=== PATIENT | female | born 1955 | race Caucasian/White ===

== ENCOUNTER 2016-08-09 17:14 | Emergency (ER) | payer OTHER ==
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
[2016-08-09 17:31] VITALS: RESP 18; TEMP 97.7; O2SAT 95
[2016-08-09] MEDS ORDERED: LORazepam 1 MG TAB PO ONE (18:28)
[2016-08-09] MEDS ORDERED: LORazepam 2 MG/ML INJ ONE (18:38)
[2016-08-09] MEDS ORDERED: LORazepam 2 MG/ML INJ IM ONE (18:44)
[2016-08-09 19:08] VITALS: BP 169/101; PULSE 101
== END 2016-08-09 19:09 | disposition home or self-care (01) ==
DX: F31.9 Bipolar disorder, unspecified (principal); Z79.82 Long term (current) use of aspirin; Z85.3 Personal history of malignant neoplasm of breast

== ENCOUNTER 2016-08-09 21:51 | Emergency (ER) | payer OTHER ==
[2016-08-09 22:16] VITALS: BP 142/92; RESP 18; TEMP 97.5
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
[2016-08-10] MEDS ORDERED: ACETAMINOPHEN 500 MG TAB ONE (04:23)
[2016-08-10] MEDS ORDERED: IBUPROFEN SUSP 100 MG/5 ML UDCUP PO ONE (04:25)
[2016-08-10] MEDS ORDERED: IBUPROFEN 600 MG TAB PO ONE (04:27)
[2016-08-10 05:00] VITALS: PULSE 99; O2SAT 93
== END 2016-08-10 07:10 | disposition home or self-care (01) ==
LOC: EDUNIT#
DX: F31.9 Bipolar disorder, unspecified (principal); Z79.82 Long term (current) use of aspirin

== ENCOUNTER 2016-08-20 11:33 | Inpatient (IN) | payer OTHER, MEDICAID ==
--- NOTE | 2016-08-20 12:39 | EDPHY ---
H & P Stated Complaint: pt discharged from [facility]. refused to transfer. Source: Other Exam Limitations: Clinical condition - Personal History Current Tetanus/Diphtheria Vaccine: Yes Current Tetanus Diphtheria and Acellular Pertussis (TDAP): Yes - Medical/Surgical History Hx Asthma: No Hx Chronic Respiratory Disease: Yes Hx Diabetes: No Hx Cardiac Disease: No Hx Renal Disease: Yes Hx Cirrhosis: No Hx Alcoholism: No Hx HIV/AIDS: No Hx Splenectomy or Spleen Trauma: No Other PMH: States [facility], COPD, Ca Breast, Neoplasm of kidney, anxiety disorder, aplastic anemia, CHF, PNA, hypothyroidism, UTI- from [facility]. Refusing to give any information. - Social History Smoking Status: Light smoker Time Seen by Provider: 08/20/16 11:41 HPI/ROS: CHIEF COMPLAINT: "There is nothing wrong with me" HISTORY OF PRESENT ILLNESS: This is a 60-year-old female with a history of bipolar disorder. She tells me that she was evicted from [facility] this morning. She would like to go to [place] where she reportedly owns a private home. I am that she was to go to [facility] in [place] today, apparently for an evaluation of some sort. However, she refused to get into the transportation that had been arranged. I have spoken with Dr. Chin, physician at [facility], and our briefcase sewer, who has also spoken with staff at [facility] to obtain additional history. Apparently she was placed on an M1 hold last week and was evaluated [facility]. She was discharged from [facility] after the evaluation and returned to [facility]. It seems that her behavior has been un manageable. She has been aggressive with the staff and other patients. She persists in smoking in the presence of oxygen. The patient has no complaints whatsoever at this time. She denies chest pain. She does not feel short of breath. She states that she wears oxygen on an as needed basis, usually at night. She has a bag of medications with her and tells me that she does not plan to continue taking most of these these medications. She has a guardian. The patient herself does not have decision making capacity. REVIEW OF SYSTEMS: Patient cannot reliably provide a review of systems. (Marla Basilio) - Social History Additional Social History: Has been living at [facility]. She has a guardian. Continues to smoke cigarettes. Denies alcohol use. (Marla Basilio) - Physical Exam Exam: General Appearance: Alert. Vital signs reviewed. She is wearing oxygen. Initial BP 139.99. Disheveled. Eyes: Pupils equal and round, no conjunctival injection, no discharge. Anicteric. ENT, Mouth: Mucous membranes are moist, no oropharyngeal erythema or edema. Neck: No lymphadenopathy, supple. Respiratory: Lungs are clear to auscultation; no wheezes, rales, or rhonchi. Cardiovascular: Regular rate and rhythm; no murmur, rub, or gallop. Gastrointestinal: Abdomen is soft and nontender, no masses or organomegaly, bowel sounds normal. Skin: Warm and dry, no rashes on exposed skin, normal color. Back: Nontender to palpation over the thoracolumbar spine. No CVAT. Neurological: Alert and oriented. Moving all four extremities easily and equally. PERRL. EOMI. Facial expressions symmetric. Tongue midline. Psychiatric: Normal affect, slightly pressured speech. (Marla Basilio) Constitutional: Initial Vital Signs Temperature (C) 36.5 C 08/20/16 11:33 Heart Rate 98 08/20/16 11:33 Respiratory Rate 16 08/20/16 11:33 Blood Pressure 139/99 H 08/20/16 11:33 O2 Sat (%) 98 08/20/16 11:33 O2 Delivery Mode Nasal Cannula O2 (L/minute) 3 Allergies/Adverse Reactions: formoterol fumarate [From Dulera] Allergy (Unknown, Verified 08/09/16 17:33) Influenza Virus Vaccines Allergy (Unknown, Verified 08/09/16 17:33) mometasone furoate Allergy (Unknown, Verified 08/09/16 17:33) prednisolone Allergy (Unknown, Verified 08/09/16 17:33) risperidone [From Risperdal] Allergy (Unknown, Verified 08/09/16 17:33) acetaminophen Allergy (Verified 08/09/16 17:33) Home Medications: Medication Instructions Recorded Albuterol [Proventil Inhaler HFA 2 puffs IH Q4 PRN 08/09/16 (*)] Aspirin [Aspirin 81mg (*)] 81 mg PO DAILY 08/09/16 Carisoprodol [Soma (*)] 350 mg PO Q8 PRN 08/09/16 Carvedilol [Coreg] 12.5 mg PO BIDMEAL 08/09/16 Cephalexin [Keflex (*)] 500 mg PO BID 08/09/16 Ergocalciferol [Vitamin D2 (*)] 50,000 unit PO Q30D 08/09/16 Folic Acid [Folic Acid 1 MG (*)] 1 mg PO DAILY 08/09/16 Furosemide [Lasix 20 MG (*)] 20 mg PO DAILY 08/09/16 Guaifenesin [Tussin Mucus-Chest 600 mg PO BID 08/09/16 Congestion] HYDROmorphone HCL [Dilaudid 2 mg 2 mg PO Q6 PRN MDD UP TO 3X/DAY 08/09/16 (*)] Hydrocodone/Chlorpheniramine 5 ml PO Q12 PRN 08/09/16 [Vituz Solution] Letrozole [Femara 2.5 mg (*)] 2.5 mg PO DAILY 08/09/16 Levothyroxine [Synthroid 75 mcg 75 mcg PO DAILY06 08/09/16 (*)] Loperamide HCl [Imodium 2 mg (*)] 2 mg PO Q6 PRN 08/09/16 Omeprazole [Prilosec 20 mg] 20 mg PO DAILY 08/09/16 Phenytoin [Dilantin (*)] 200 mg PO DAILY 08/09/16 Polyethylene Glycol 3350 [Miralax 17 gm PO DAILY PRN 08/09/16 17 gm (*)] Potassium Cl [Klor-Con 20 meq (*)] 20 meq PO DAILY 08/09/16 Sennosides 17.6 mg PO DAILY PRN 08/09/16 Simethicone [GAS-X] 80 mg PO Q8 PRN 08/09/16 Sodium Cl Nasal [[place] (*)] 2 spray [place]ACH[place]ARE Q8 PRN 08/09/16 clonazePAM [Klonopin (*)] 0.25 mg PO BID 08/09/16 morphINE SR [Ms Contin/Oramorph 15 15 mg PO BID 08/09/16 mg (*)] Aripiprazole [Abilify] 15 mg PO DAILY 08/22/16 HYDROmorphone HCL [Dilaudid 2 mg 1 mg PO HS PRN 08/22/16 (*)] Nystatin Cream 1 angella TP BID 08/22/16 Phenytoin [Dilantin (*)] 300 mg PO HS 08/22/16 Sodium Cl Nasal Gel [[place] Saline 1 angella EACHNARE Q8 PRN 08/22/16 Nasal Gel] Tiotropium Inhaler [Spiriva 18 mcg IH DAILY 08/22/16 Handihaler] Venlafaxine Xr [Effexor Xr 37.5MG 37.5 mg PO DAILY 08/22/16 (*)] Venlafaxine Xr [Effexor Xr] 150 mg PO DAILY 08/22/16 morphINE SR [Ms Contin/Oramorph 15 30 mg PO DAILY16 08/22/16 mg (*)] traZODone [traZODONE 50MG (*)] 50 mg PO HS 08/22/16 Medical Decision Making ED Course/Re-evaluation: 0700: No acute events overnight. Patient pending psychiatric placement. Patient signed over to Dr. Charles at 7am Shift Change. (Casper Shaw) Patient has been evaluated. At 2:00 p.m. our mental health human factors advisor lead tells me that Dr. Henning of Psychiatry will see the patient in the emergency department this afternoon Dr. Jaramillo at 3:15 p.m. (Patrice Charles) 1515: Care of this patient was transferred to me by Dr. Patrice Charles at change of shift. (Rodo Jaramillo) 1600 care assumed by me from Dr. Basilio pending placement. 2300 the care transferred to Dr. Shaw pending placement. No issues during my care of this patient. 2210, 08/21/16 Care re-assumed by me from Dr. Jaramillo. Still awaiting placement. 0700 08/22/[address] Hope pending placement. I have had no issues with this patient overnight. (Noah Khan) 7:30 a.m. on my evaluation the patient is sleeping in her walker chair. She refuses to go to the [facility]. She is somewhat cooperative with questioning and has stable vital signs. We are awaiting psychiatric placement. 2:00 p.m. the patient has been accepted by Dr. Henning to [address] [place] [address]. Transfer paperwork completed. (Rozeski,Keith E) After speaking with the patient's doctor and hearing from our briefcase sewer about her conversations with the [facility] staff, it is clear that [facility] is unable to care for this patient, where she has been residing for the past month. Apparently she has been refusing to take her psychiatric medications. I am trying to obtain her records from her mental health evaluation at [facility] last week. I feel that this patient is gravely disabled and is unable to make decisions for herself. She has a court appointed guardian and is unable to make her own decisions. She is being placed on an M1 hold. Bloodwork, UA, UDS being obtained. Psychiatric evaluation will be performed. Care will be transferred to Dr. Adam Isaac at 4:30 p.m.. (Marla Basilio) Differential Diagnosis: I considered a differential diagnosis including but not limited to bipolar disease off medications, hypoglycemia, infectious process, electrolyte abnormality, head injury and intoxicants. (Marla Basilio) - Data Points Laboratory Results: Laboratory Results 08/20/16 16:49 08/20/16 16:00 Medications Given: Discontinued Medications Aripiprazole (Abilify) 15 mg PO DAILY ELKE Stop: 02/18/17 09:59 Last Admin: 08/22/16 11:34 Dose: 15 mg Aspirin (Aspirin) 81 mg PO EDNOW ONE Stop: 08/22/16 10:00 Last Admin: 08/22/16 11:34 Dose: Not Given Carvedilol (Coreg) 12.5 mg PO EDNOW ONE Stop: 08/22/16 09:59 Last Admin: 08/22/16 11:34 Dose: 12.5 mg Clonazepam (Klonopin) 0.25 mg PO EDNOW ONE Stop: 08/22/16 09:58 Last Admin: 08/22/16 11:34 Dose: Not Given Clonazepam (Klonopin) 0.5 mg PO ONCE ONE Stop: 08/22/16 20:31 Last Admin: 08/22/16 21:28 Dose: 0.5 mg Folic Acid (Folic Acid) 1 mg PO EDNOW ONE Stop: 08/22/16 09:58 Last Admin: 08/22/16 11:34 Dose: 1 mg Furosemide (Lasix) 20 mg PO EDNOW ONE Stop: 08/22/16 09:55 Last Admin: 08/22/16 11:35 Dose: Not Given Levothyroxine Sodium (Synthroid) 75 mcg PO DAILY AT 6AM ELKE Stop: 02/18/17 09:59 Last Admin: 08/22/16 11:35 Dose: 75 mcg Nicotine (Nicoderm Cq) 21 mg TD EDNOW ONE Stop: 08/20/16 16:10 Last Admin: 08/20/16 20:19 Dose: 21 mg Nicotine (Nicoderm Cq) 21 mg TD EDNOW ONE Stop: 08/22/16 11:38 Last Admin: 08/22/16 12:32 Dose: 21 mg Phenytoin (Dilantin) 200 mg PO EDNOW ONE Stop: 08/22/16 10:04 Last Admin: 08/22/16 11:35 Dose: 200 mg Phenytoin Sodium (Dilantin) 300 mg PO HS [facility] Stop: 02/18/17 20:59 Last Admin: 08/22/16 19:48 Dose: Not Given Venlafaxine HCl (Effexor Xr) 150 mg PO DAILY [facility] Stop: 02/18/17 09:59 Last Admin: 08/22/16 11:36 Dose: Not Given Departure - Departure Disposition: [facility] IP Clinical Impression: Bipolar disorder Qualifiers: Active/Remission status: currently active Current bipolar episode type: mixed Current episode severity: mild Qualified Code(s): F31.61 - Bipolar disorder, current episode mixed, mild Condition: Fair
[2016-08-20] MEDS ORDERED: NICOTINE 21 MG/24 HR PATCH TD ONE (16:09)
[2016-08-20 16:12] LABS: ADD DIFF? NO; ADD MORPH? NO; ADD SCAN? NO
[2016-08-20 16:40] LABS: ANION GAP 14 mEq/L (8-16); CARBON DIOXIDE 23 mEq/l (22-31); CHLORIDE 104 mEq/L (97-110); CREATININE 0.6 mg/dL (0.6-1.0); ETHANOL SERUM < 10 mg/dL (0-10); GLOMERULAR FILTRATION RATE > 60; GLUCOSE 126 mg/dL (70-100); POTASSIUM 3.7 mEq/L (3.5-5.2); SODIUM 141 mEq/L (134-144)
[2016-08-20 17:04] LABS: % IMMATURE GRANULYOCYTES 0.5 % (0.0-1.1); ABSOLUTE IMMATURE GRANULOCYTES 0.05 10^3/uL (0.00-0.10); ADD DIFF? NO; ADD MORPH? NO; ADD SCAN? NO; ATYPICAL LYMPHOCYTE FLAG 0 (0-99); FRAGMENT RBC FLAG 0 (0-99); HEMATOCRIT 40.7 % (38.0-47.0); LEFT SHIFT FLG 0 (0-99); LIPEMIA HEMOLYSIS FLAG 90 (0-99); MEAN CELL HEMOGLOBIN 32.5 pg (27.9-34.1); MEAN CELL HEMOGLOBIN CONCENTR. 34.4 g/dL (32.4-36.7); MEAN CELL VOLUME 94.4 fL (81.5-99.8); MEAN PLATELET VOLUME 8.8 fL (8.7-11.7); PLATELET CLUMPS FLAG 0 (0-99); PLATELET COUNT 465 10^3/uL (150-400); RED BLOOD CELL COUNT 4.31 10^6/uL (4.18-5.33); RED CELL DISTRIBUTION WIDTH 13.9 % (11.5-15.2)
[2016-08-21] MEDS ORDERED: OLANZapine 10 MG/2 ML VIAL IM PRN (18:43)
--- NOTE | 2016-08-21 19:00 | GCON ---
[f rep st] CONSULTATION ADDENDUM CORRECTION: Zyprexa IM order is changed to 2.5 mg IM if p.o. Seroquel refused. Please discontinue the initial order of Zyprexa 5 mg IM if Seroquel refused. /[id number]/MODL MTDD
--- NOTE | 2016-08-21 19:30 | BCON ---
[f rep st] CONSULTATION Corrected report ADDENDUM TO PREVIOUSLY DICTATED REPORT CORRECTION OF PREVIOUS DICTATION: Zyprexa IM order is changed to 2.5 mg IM if p.o. Seroquel is refused. Please discontinue the initial order of Zyprexa 5 mg IM if Seroquel is refused. /[id number] [facility] ORIGINAL REPORT PSYCHIATRIC CONSULTATION PATIENT IDENTIFICATION: The patient presents as a 60-year-old white female who was readmitted to the emergency room for the third time this month on 08/20/2016; patient had been evicted from the [facility] on the day of admission to the emergency room, had refused transportation to a residential facility in [place]. The [place] police were called, filled out a ticket for trespassing, and then brought the patient to the emergency room instead of long term, which was thought to be an inappropriate disposition. CONSULTATIVE REQUEST: I was asked to see this patient for assessment of medication management to stabilize the patient for a planned referral to an acute inpatient psychiatry service. HISTORY TO DATE: The patient has a known chronic psychiatric history extending back over 20 plus years. She has been diagnosed in the past as suffering from a Delusional Disorder, Bipolar Disorder, Schizoaffective Disorder. She also has a significant and chronic history for alcohol abuse. She suffered a medication overdose in May 2014, which precipitated a period of an acute comatose state. Following medical recovery from this event, the patient was found to have impaired judgment, and was declared incompetent by a court hearing. 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 Guardian's name is Hyun Dodson. Over the past 2 years, the patient has had a variable course, was apparently stabilized on unknown medications, such that she was able to live stably in an [facility] for approximately 1 year. Over the past year, she has sustained regressive behaviors associated with impulsivity, demandingness, at times aggressive physical dyscontrol. She also has demonstrated episodes of psychotic vulnerability, with paranoid thinking and delusional thinking. Finally, she has also evidenced affective instability, with primary mood instability and breakthrough acute anxiety symptoms. Interspersed with these regressive elements, have been periods of relative calm and organized thinking. Most recently, she had been placed in the [facility] less than 30 days ago. She has apparently sustained unstable behaviors, uncooperativeness, and, at times, has acted up aggressively toward staff and patients. It is unclear her level of compliance with medications during her time at [facility]. It is also unclear precisely of what psychiatric medications had been applied. We do know that the patient was declared unmanageable by [facility] on the day of her admission to the emergency room, 08/20. We do know she has been in the emergency room on two previous occasions in August, self-referred , and transported by patient calling the ambulance for herself. She was medically cleared and sent back to resume living at [facility] the first 2 ED discharges. Since her admission this time to the emergency room, she has presented as irritable, medication resistant, but in relative behavioral control , with no incidence of progressive acting up. Again she has been found to have no active medical instability She will not return to [facility] this time as she has proven to be unmanageable in that setting and has been evicted. Current thinking by the Psychiatry Team is that the patient needs a secure inpt setting to effectively restabilize sufficiently to stepdown to less restrictive residential setting. MENTAL STATUS EXAM: The patient presents as an old-appearing 60-year-old woman sitting in her wheelchair. She is mildly unkempt, but does cooperate and engage with me, makes good eye contact. Her thought process is organized and reality focused, other than occasional statements about her guardian being , and a "water/wastewater engineer" being in the lobby, both at odds with reality. Her mood state is irritable, with mild underlying dysphoria. She appears to understand she will not be returning to [facility]. She also appears to understand I have reviewed her case with her guardian, Hyun, and we are both in agreement that she needs more effective environment to be referred to for further care and stabilization. I do explain the need for her to take medications, and that I can authorize the medications to be given involuntarily under her guardian's authority. She states this is untrue and would be illegal. I reassured her I have reviewed her guardian's authority directly, and have concluded we can do this. We also discussed her choice of medications as being either Seroquel or Zyprexa in low doses. I explained the goals of these medications are to calm her, improve her concentration and attention, so she can think more clearly, and in a cooperative way, as we are working out a disposition for her. She states she would like some time to think for herself about what I am telling her, and I assured her I will give that to her, and make a followup contact, but that the medications will be a necessary element for treatment going forward in the emergency room. DIAGNOSTIC IMPRESSION: 1. Precise psychiatric diagnosis is unclear, but the patient appears likely to be on the spectrum between Bipolar Disorder and Schizoaffective Disorder, as the history is currently understood, integrated with the exam. She is currently presenting with some circumscribed paranoid ideation, but otherwise with intact reality testing. 2. A chronic history of alcohol abuse, which has apparently not been active for several years, as the patient has been living in institutionalized existence. 3. No active medical problems, per current emergency room evaluation; the patient has an extensive medical history for chronic conditions, as referenced in the emergency room note. RECOMMENDATIONS: Medications: Medications--We will order Seroquel at 50 mg p.o. twice daily, and 50 mg p.o. q.4h p.r.n.; if patient refuses p.o. Seroquel dosing, we will administer Zyprexa at 5 mg IM to concur with patient presenting as gravely disabled, and in need of a referral to a secure inpatient psychiatric service. On brief followup contact pt agreed to to Seroquel po dosing regimen.and understood the dispositional plan Thank you for this interesting consultation; I can be reached at [phone] with any questions. See followup correction of Zyprexa dosing as decreased to 2 1/2 mg IM if po Seroquel dosing refused /[id number]/MODL [facility], 08/22/16, jose CHÁVEZ
[2016-08-21] MEDS: QUEtiapine FUMARATE 50 MG TAB PO PRN (19:48)
[2016-08-21] MEDS: QUEtiapine FUMARATE 50 MG TAB PO SCH (20:18)
[2016-08-22 02:20] LABS: COLOR AMBER; LEUKOCYTE ESTERASE,URINE NEGATIVE (NEGATIVE); NITRITE,URINE NEGATIVE (NEGATIVE)
[2016-08-22] MEDS ORDERED: FUROSEMIDE 20 MG TAB PO ONE (09:54)
[2016-08-22] MEDS ORDERED: FOLIC ACID 1 MG TAB PO ONE (09:57)
[2016-08-22] MEDS ORDERED: clonazePAM 0.5 MG TAB PO ONE ×2 (09:57→20:30)
[2016-08-22] MEDS ORDERED: CARVEDILOL 6.25 MG TAB PO ONE (09:58)
[2016-08-22] MEDS ORDERED: ASPIRIN 81 MG CHEWABLE TAB PO ONE (09:59)
[2016-08-22] MEDS ORDERED: LEVOTHYROXINE 75 MCG TAB PO SCH (10:00)
[2016-08-22] MEDS ORDERED: ARIPiprazole 10 MG TAB PO SCH (10:00)
[2016-08-22] MEDS ORDERED: VENLAFAXINE XR 150 MG CAP PO SCH (10:00)
[2016-08-22] MEDS ORDERED: PHENYTOIN 100 MG/4 ML UDL PO ONE (10:03)
[2016-08-22] MEDS ORDERED: FUROSEMIDE 20 MG TAB ONE (11:02)
[2016-08-22] MEDS ORDERED: QUEtiapine FUMARATE 100 MG TAB ONE (11:18)
[2016-08-22] MEDS: POTASSIUM CL 20 MEQ TAB PO SCH (11:35)
[2016-08-22] MEDS: LETROZOLE 2.5 MG TAB PO SCH (11:35)
[2016-08-22] MEDS: QUEtiapine FUMARATE 50 MG TAB PO SCH ×2 (11:36→19:36)
[2016-08-22] MEDS: TIOTROPIUM INHALER 18 MCG/DOSE 5 DOSE/MDI IH SCH ×2 (11:36→12:00)
[2016-08-22] MEDS ORDERED: NICOTINE 21 MG/24 HR PATCH TD ONE (11:37)
[2016-08-22] MEDS ORDERED: NON-FORMULARY NEW DRUG (Carvedilol [Coreg] 12.5 MG) PO SCH (18:00)
[2016-08-22] MEDS: CARVEDILOL 6.25 MG TAB PO SCH ×2 (19:31→19:36)
[2016-08-22] MEDS: guaiFENesin 200 MG/10 ML UDCUP PO SCH (19:36)
[2016-08-22] MEDS ORDERED: PHENYTOIN SODIUM EXTENDED 100 MG CAP PO SCH (21:00)
[2016-08-22] MEDS ORDERED: NYSTATIN TP SCH ×2 (21:00)
[2016-08-22] MEDS: PHENYTOIN 50 MG CHEWABLE TAB PO SCH (21:28)
[2016-08-22] MEDS: NYSTATIN 15 GM CR TUBE TP SCH (21:28)
[2016-08-23] MEDS ORDERED: NON-FORMULARY NEW DRUG (Omeprazole [Prilosec 20 Mg] 20 MG) PO SCH (09:00)
[2016-08-23] MEDS ORDERED: PHENYTOIN SODIUM EXTENDED 100 MG CAP PO SCH (09:00)
[2016-08-23] MEDS: LETROZOLE 2.5 MG TAB PO SCH (10:30)
[2016-08-23] MEDS: QUEtiapine FUMARATE 50 MG TAB PO SCH ×2 (10:31→20:14)
[2016-08-23] MEDS: CARVEDILOL 6.25 MG TAB PO SCH ×2 (10:32→17:46)
[2016-08-23] MEDS: LEVOTHYROXINE 75 MCG TAB PO SCH (10:32)
[2016-08-23] MEDS: POTASSIUM CL 20 MEQ TAB PO SCH ×3 (10:33→12:19)
[2016-08-23] MEDS: FOLIC ACID 1 MG TAB PO SCH (10:33)
[2016-08-23] MEDS: PANTOPRAZOLE SODIUM 40 MG TAB PO SCH ×2 (10:33→10:41)
[2016-08-23] MEDS: guaiFENesin 200 MG/10 ML UDCUP PO SCH ×3 (10:33→20:14)
[2016-08-23] MEDS: NYSTATIN 15 GM CR TUBE TP SCH ×2 (10:41→20:14)
[2016-08-23] MEDS: PHENYTOIN 50 MG CHEWABLE TAB PO SCH ×4 (12:11→20:14)
[2016-08-23] MEDS: TIOTROPIUM INHALER 18 MCG/DOSE 5 DOSE/MDI IH SCH (12:19)
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
[2016-08-23] MEDS: HYDROmorphONE/DILAUDID 2 MG TAB PO PRN ×2 (16:54→20:51)
[2016-08-23] MEDS: CARISOPRODOL 350 MG TAB PO PRN (16:54)
[2016-08-23] MEDS: clonazePAM 0.5 MG TAB PO SCH (20:14)
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
[2016-08-24] MEDS: POTASSIUM CL 20 MEQ TAB PO SCH (08:42)
[2016-08-24] MEDS: PHENYTOIN 50 MG CHEWABLE TAB PO SCH ×4 (08:43→18:37)
[2016-08-24] MEDS: LETROZOLE 2.5 MG TAB PO SCH ×2 (08:44→09:13)
[2016-08-24] MEDS: CARVEDILOL 6.25 MG TAB PO SCH ×2 (08:44→18:35)
[2016-08-24] MEDS: FOLIC ACID 1 MG TAB PO SCH ×2 (08:44→09:12)
[2016-08-24] MEDS: guaiFENesin 200 MG/10 ML UDCUP PO SCH ×2 (08:44→22:00)
[2016-08-24] MEDS: QUEtiapine FUMARATE 50 MG TAB PO SCH ×3 (08:44→18:37)
[2016-08-24] MEDS: PANTOPRAZOLE SODIUM 40 MG TAB PO SCH (08:45)
[2016-08-24] MEDS: TIOTROPIUM INHALER 18 MCG/DOSE 5 DOSE/MDI IH SCH (08:45)
[2016-08-24] MEDS: NYSTATIN 15 GM CR TUBE TP SCH ×2 (08:52→22:00)
[2016-08-24] MEDS: CARISOPRODOL 350 MG TAB PO PRN ×2 (09:29→18:55)
[2016-08-24] MEDS: LEVOTHYROXINE 75 MCG TAB PO SCH (10:38)
[2016-08-24] MEDS: QUEtiapine FUMARATE 50 MG TAB PO PRN (13:36)
[2016-08-24] MEDS ORDERED: OLANZapine 10 MG/2 ML VIAL IM PRN (13:42)
--- NOTE | 2016-08-24 15:09 | SOAPPROG ---
SOAP Progress Note Assessment/Plan: Assessment: Plan: 08/24/16 14:55 DAY 3 UPDATE: Pt presents as demanding, entitle, using abusive language in contacts with Nursing staff; her compliance with meds has been mixed but she is taking the more important standing medical medications and is complying with the standing Seroquel. She has not acted up in any aggressive physical manner. She has also not been abusive or aggressive toward other patients. Admission medical consultation with Dr Burrows did not identify any active medical problems. ON EXAM: prior to my exam I reviewed the operational Care Plan with our Head Nurse and her assigned RN which called for active limits placed on pt's foul language and entitled demandingness with emphasis on consistency across shifts. I reviewed the problems and the need for corrective response by the patient in the course of the session. After demanding immediate DC and transfer to another hospital the pt calmed and agreed to cooperate with civilizing her language and complying effectively prescribed meds. She also accepted the absolute restriction on smoking while in the hospital and requesting NRT which I will order for her. Thoughout the session she remained in good control and did not use abusive language. She did not display any psychosis in the session and was cognitivley intact with minimal impairment ASSESSMENT/PLAN: regression c/w [place] 2 Cluster B pathology; today nonpsychotic and in behavioral control/ no change in meds o/t changing the Zyprexa order to an E-med order; behavioral care plan in place as referenced; w/u in process to reach definitive dx's and fro mulated DC planning; Nicoderm patch ordered Objective: Vital Signs Temp Pulse Resp BP Pulse Ox 36.6 C 86 15 107/53 L 96 08/24/16 00:27 08/24/16 00:27 08/24/16 00:27 08/24/16 00:27 08/24/16 00:27 ICD10 Worksheet Patient Problems: Problems Problem Status Onset Bipolar disorder Acute
[2016-08-24] MEDS: NICOTINE 21 MG/24 HR PATCH TD SCH (16:01)
[2016-08-24] MEDS: clonazePAM 0.5 MG TAB PO SCH (18:36)
[2016-08-24] MEDS: HYDROmorphONE/DILAUDID 2 MG TAB PO PRN ×2 (18:58→19:51)
[2016-08-25] MEDS: CARVEDILOL 6.25 MG TAB PO SCH ×2 (09:35→18:29)
[2016-08-25] MEDS: FOLIC ACID 1 MG TAB PO SCH (09:40)
[2016-08-25] MEDS: QUEtiapine FUMARATE 50 MG TAB PO SCH ×2 (09:41→18:30)
[2016-08-25] MEDS: PANTOPRAZOLE SODIUM 40 MG TAB PO SCH ×2 (09:41→12:13)
[2016-08-25] MEDS: LEVOTHYROXINE 75 MCG TAB PO SCH (09:41)
[2016-08-25] MEDS: PHENYTOIN 50 MG CHEWABLE TAB PO SCH ×2 (09:42→18:30)
[2016-08-25] MEDS: LETROZOLE 2.5 MG TAB PO SCH (09:42)
[2016-08-25] MEDS: NICOTINE 21 MG/24 HR PATCH TD SCH (09:43)
[2016-08-25] MEDS: guaiFENesin 200 MG/10 ML UDCUP PO SCH ×2 (09:44→18:30)
[2016-08-25] MEDS: POTASSIUM CL 20 MEQ TAB PO SCH (09:45)
[2016-08-25] MEDS: NYSTATIN 15 GM CR TUBE TP SCH ×2 (09:47→19:38)
[2016-08-25] MEDS: HYDROmorphONE/DILAUDID 2 MG TAB PO PRN ×2 (09:50→16:01)
[2016-08-25] MEDS: CARISOPRODOL 350 MG TAB PO PRN ×2 (09:50→18:26)
[2016-08-25] MEDS: TIOTROPIUM INHALER 18 MCG/DOSE 5 DOSE/MDI IH SCH (12:15)
--- NOTE | 2016-08-25 16:35 | SOAPPROG ---
SOAP Progress Note Assessment/Plan: Assessment:Patient with mood disorder with psychosis along with unspecified opioid use disorder currently taking medications. She is not making any demands at this time. No evidence of a mood disorder at this time. Her statement about going to [place] most likely is delusional. No current safety issues. Plan: Continue medications and treatment. Encourage continued pro-social behaviors. 08/25/16 16:32 08/25/16 16:38 Subjective: "Come si down and speak with me." She reports she has no problems except she would like clean clothes, her rosary, yellow necklace, and the tangle in the back of her hair combed out. She reports she will be going to her late 's home in [place]. She states he is a retired hospital nurse, [employer]. He allegedly know she is coming. Objective: Vital Signs Temp Pulse Resp BP Pulse Ox 36.6 C 78 12 144/73 H 97 08/25/16 09:56 08/25/16 09:56 08/25/16 09:56 08/25/16 00:30 08/25/16 09:56 female witting on her bed with O2 via NC, hunched over. Fair eye contact. Mood- Fine." Affect- Euthymic. Thought Process- Goal directed. Thought Content - No SI/HI. No AH/VH. +delusional. - Time Spent With Patient Time Spent With Patient: 25 minutes - Pending Discharge Pending Discharge Within 24 Hours: No Pending Discharge Within 48 Hours: No ICD10 Worksheet Patient Problems: Problems Problem Status Onset Bipolar disorder Acute
[2016-08-25] MEDS: clonazePAM 0.5 MG TAB PO SCH (18:30)
[2016-08-26] MEDS: HYDROmorphONE/DILAUDID 2 MG TAB PO PRN ×3 (03:53→17:52)
[2016-08-26] MEDS: QUEtiapine FUMARATE 50 MG TAB PO PRN (03:53)
[2016-08-26] MEDS: CARISOPRODOL 350 MG TAB PO PRN ×3 (03:54→21:17)
[2016-08-26] MEDS: NICOTINE 21 MG/24 HR PATCH TD SCH (08:07)
[2016-08-26] MEDS: guaiFENesin 200 MG/10 ML UDCUP PO SCH ×2 (08:07→21:26)
[2016-08-26] MEDS: FOLIC ACID 1 MG TAB PO SCH (08:08)
[2016-08-26] MEDS: CARVEDILOL 6.25 MG TAB PO SCH ×2 (08:08→17:47)
[2016-08-26] MEDS: LETROZOLE 2.5 MG TAB PO SCH (08:08)
[2016-08-26] MEDS: PANTOPRAZOLE SODIUM 40 MG TAB PO SCH (08:08)
[2016-08-26] MEDS: PHENYTOIN 50 MG CHEWABLE TAB PO SCH ×2 (08:08→21:15)
[2016-08-26] MEDS: QUEtiapine FUMARATE 50 MG TAB PO SCH (08:32)
[2016-08-26] MEDS: LEVOTHYROXINE 75 MCG TAB PO SCH (08:34)
[2016-08-26] MEDS: NYSTATIN 15 GM CR TUBE TP SCH ×2 (08:43→21:26)
[2016-08-26] MEDS: POTASSIUM CL 20 MEQ TAB PO SCH (08:44)
[2016-08-26] MEDS: TIOTROPIUM INHALER 18 MCG/DOSE 5 DOSE/MDI IH SCH (08:45)
--- NOTE | 2016-08-26 13:48 | SOAPPROG ---
SOAP Progress Note Assessment/Plan: Assessment:Patient with mood disorder with psychosis along with unspecified opioid use disorder currently taking medications. She is asking to leave today. She believes family members are coming tot get her. No evidence of a mood disorder at this time. Her statement about going to [place] or [place] most likely is delusional. She was told we will discuss her plans further once her family or guardian arrives. She is asking to have her hair untangled and something for sleep. No current safety issues. Plan: Continue medications and treatment. Will increase Seroquel for her psychosis, mood, and sleep. It is potentially being decreased by the [place], so we will need to monitor her response. Encourage continued pro-social behaviors. Will not restart Trazodone given she is on Seroquel. 08/25/16 16:32 08/25/16 16:38 08/26/16 13:36 08/26/16 13:48 08/26/16 13:57 Subjective: She states he won't keep this underwriter solicitation director long, but she has three things to talk to this underwriter solicitation director about. #1- "I understand tht you discharged me already." She reports one of the workers told her this several days ago. She reports she is speaking logically and she is not suicidal, so she does not believe I have grounds to keep her. She reports she needs to be discharged to [place] or [place]. She believes her printing screen assembler will be coming to get her today. "My people will be here this morning." #2- She report she is doing well on medications except she needs a little more pain medication She reports he was on MS Contin and other opiates along with Soma and Dilaudid in the past. She will leave it up to this underwriter solicitation director to decide what is appropriate. #3- She reports having [place] blood. "I need your help to get the tangle out. I need hair oil and a different comb. You know the kind of comb you use." Objective: Vital Signs Temp Pulse Resp BP Pulse Ox 36.3 C 83 16 115/70 92 08/26/16 00:30 08/26/16 00:30 08/26/16 00:30 08/26/16 00:30 08/26/16 00:30 female sitting in a chair in her room with O2 via NC. Hair matted in the back. Speech- RRR and tone. Mood- "Hopeful. " Affect- Euthymic. Thought Process- linear and goal directed. Thought Content - No SI/HI. No AH/VH. + delusional. - Time Spent With Patient Time Spent With Patient: 15 - Pending Discharge Pending Discharge Within 24 Hours: No Pending Discharge Within 48 Hours: No ICD10 Worksheet Patient Problems: Problems Problem Status Onset Bipolar disorder Acute
[2016-08-26] MEDS: QUEtiapine FUMARATE 200 MG TAB PO SCH (21:16)
[2016-08-26] MEDS: clonazePAM 0.5 MG TAB PO SCH (21:26)
[2016-08-27] MEDS: HYDROmorphONE/DILAUDID 2 MG TAB PO PRN ×3 (04:17→16:30)
[2016-08-27] MEDS: CARISOPRODOL 350 MG TAB PO PRN ×3 (06:26→22:26)
[2016-08-27] MEDS: NICOTINE 21 MG/24 HR PATCH TD SCH (09:35)
[2016-08-27] MEDS: PHENYTOIN 50 MG CHEWABLE TAB PO SCH ×2 (09:35→21:26)
[2016-08-27] MEDS: QUEtiapine FUMARATE 25 MG TAB PO SCH (09:36)
[2016-08-27] MEDS: CARVEDILOL 6.25 MG TAB PO SCH ×2 (09:36→18:02)
[2016-08-27] MEDS: PANTOPRAZOLE SODIUM 40 MG TAB PO SCH (09:37)
[2016-08-27] MEDS: FOLIC ACID 1 MG TAB PO SCH (09:37)
[2016-08-27] MEDS: LEVOTHYROXINE 75 MCG TAB PO SCH (09:37)
[2016-08-27] MEDS: LETROZOLE 2.5 MG TAB PO SCH (09:37)
[2016-08-27] MEDS: TIOTROPIUM INHALER 18 MCG/DOSE 5 DOSE/MDI IH SCH (09:41)
[2016-08-27] MEDS: guaiFENesin 200 MG/10 ML UDCUP PO SCH ×2 (09:43→21:31)
[2016-08-27] MEDS: NYSTATIN 15 GM CR TUBE TP SCH ×2 (09:43→21:31)
[2016-08-27] MEDS: POTASSIUM CL 20 MEQ TAB PO SCH (09:44)
--- NOTE | 2016-08-27 11:37 | SOAPPROG ---
SOAP Progress Note Assessment/Plan: Assessment: Plan: 08/24/16 14:55 DAY 3 UPDATE: Pt presents as demanding, entitle, using abusive language in contacts with Nursing staff; her compliance with meds has been mixed but she is taking the more important standing medical medications and is complying with the standing Seroquel. She has not acted up in any aggressive physical manner. She has also not been abusive or aggressive toward other patients. Admission medical consultation with Dr Burrows did not identify any active medical problems. ON EXAM: prior to my exam I reviewed the operational Care Plan with our Head Nurse and her assigned RN which called for active limits placed on pt's foul language and entitled demandingness with emphasis on consistency across shifts. I reviewed the problems and the need for corrective response by the patient in the course of the session. After demanding immediate DC and transfer to another hospital the pt calmed and agreed to cooperate with civilizing her language and complying effectively prescribed meds. She also accepted the absolute restriction on smoking while in the hospital and requesting NRT which I will order for her. Thoughout the session she remained in good control and did not use abusive language. She did not display any psychosis in the session and was cognitivley intact with minimal impairment ASSESSMENT/PLAN: regression c/w [place] [employer] 2 Cluster B pathology; today nonpsychotic and in behavioral control/ no change in meds o/t changing the Zyprexa order to an E-med order; behavioral care plan in place as referenced; w/u in process to reach definitive dx's and formulated DC planning; Nicoderm patch ordered 08/27/16 11:21 DAY ' UPDATE: Nursing reports pt is improving thru the weekend with diminished foul language, no behavioral dyscontrol and improving meds compliance; remains visible in milieu; sleep is still compromised and hs Seroquel increased to 200 mg hs. ON EXAM: presents as calm, cooperative conversant; pt continues to present odd thought pattern seen pre-weekend in which she appears to confuse her t gonzalo sense and issues a/w DC planning - reporting conversations that haven't taken place or think that persons are nearby or on the unit. These statements are interspersed with lucid statements and full orientation. Suggests cognitive impairment rather that a thought disorder. ASSESSMENT/PLAN: improving course with more cooperative behaviors, lessening verbal abusiveness; CI as referenced/ will add Melatonin 3mg at pt's suggestion ; o/w no meds changes; continue reintegrative Care Plan as d/w Nursing; call pending to guardian to arrange DC planning conference Medications Generic Name Dose Route Start Last Admin Trade Name Freq PRN Reason Stop Dose Admin Clonazepam 0.5 mg 08/23/16 21:00 08/26/16 21:26 Klonopin PO 02/19/17 20:59 Not Given HS ELKE Quetiapine Fumarate 50 mg 08/21/16 18:47 08/24/16 13:36 Seroquel PO 02/17/17 18:46 50 mg Q4H PRN AGITATION Quetiapine Fumarate 200 mg 08/26/16 21:00 08/26/16 21:16 Seroquel PO 02/22/17 20:59 Not Given HS ELKE Quetiapine Fumarate 50 mg 08/27/16 09:00 08/27/16 09:36 Seroquel PO 02/23/17 08:59 Not Given DAILY ELKE Phenytoin 300 mg 08/22/16 21:00 08/26/16 21:15 Dilantin PO 02/18/17 20:59 300 mg HS ELKE Objective: Vital Signs Temp Pulse Resp BP Pulse Ox 36.2 C 86 12 141/69 H 91 L 08/27/16 06:21 08/27/16 06:21 08/27/16 06:21 08/27/16 06:21 08/27/16 06:21 ICD10 Worksheet Patient Problems: Problems Problem Status Onset Bipolar disorder Acute
[2016-08-27] MEDS: QUEtiapine FUMARATE 50 MG TAB PO PRN (16:34)
[2016-08-27] MEDS: clonazePAM 0.5 MG TAB PO SCH (21:24)
[2016-08-27] MEDS: QUEtiapine FUMARATE 200 MG TAB PO SCH (21:25)
[2016-08-27] MEDS: MELATONIN 3 MG TAB PO SCH (21:25)
[2016-08-28] MEDS: QUEtiapine FUMARATE 50 MG TAB PO PRN ×2 (04:31→13:38)
[2016-08-28] MEDS: HYDROmorphONE/DILAUDID 2 MG TAB PO PRN ×3 (04:32→18:39)
[2016-08-28] MEDS: PHENYTOIN 50 MG CHEWABLE TAB PO SCH ×2 (08:53→20:50)
[2016-08-28] MEDS: guaiFENesin 200 MG/10 ML UDCUP PO SCH ×3 (08:53→21:04)
[2016-08-28] MEDS: NICOTINE 21 MG/24 HR PATCH TD SCH (08:53)
[2016-08-28] MEDS: LETROZOLE 2.5 MG TAB PO SCH (08:54)
[2016-08-28] MEDS: FOLIC ACID 1 MG TAB PO SCH (08:54)
[2016-08-28] MEDS: QUEtiapine FUMARATE 25 MG TAB PO SCH (08:54)
[2016-08-28] MEDS: PANTOPRAZOLE SODIUM 40 MG TAB PO SCH ×2 (08:54→09:09)
[2016-08-28] MEDS: CARVEDILOL 6.25 MG TAB PO SCH ×2 (08:54→18:42)
[2016-08-28] MEDS: NYSTATIN 15 GM CR TUBE TP SCH ×2 (08:55→21:04)
[2016-08-28] MEDS: LEVOTHYROXINE 75 MCG TAB PO SCH (09:08)
[2016-08-28] MEDS: POTASSIUM CL 20 MEQ TAB PO SCH (09:08)
[2016-08-28] MEDS: CARISOPRODOL 350 MG TAB PO PRN (09:09)
[2016-08-28] MEDS: TIOTROPIUM INHALER 18 MCG/DOSE 5 DOSE/MDI IH SCH (09:09)
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
[2016-08-28] MEDS: MELATONIN 3 MG TAB PO SCH (20:50)
[2016-08-28] MEDS: clonazePAM 0.5 MG TAB PO SCH (20:50)
[2016-08-28] MEDS: QUEtiapine FUMARATE 200 MG TAB PO SCH (20:50)
[2016-08-29] MEDS: HYDROmorphONE/DILAUDID 2 MG TAB PO PRN ×4 (02:53→23:39)
[2016-08-29] MEDS: CARISOPRODOL 350 MG TAB PO PRN ×3 (02:54→19:20)
[2016-08-29] MEDS: QUEtiapine FUMARATE 50 MG TAB PO PRN (06:33)
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
[2016-08-29] MEDS: guaiFENesin 200 MG/10 ML UDCUP PO SCH ×2 (08:59→19:25)
[2016-08-29] MEDS: PHENYTOIN 50 MG CHEWABLE TAB PO SCH ×2 (08:59→21:40)
[2016-08-29] MEDS: NICOTINE 21 MG/24 HR PATCH TD SCH (08:59)
[2016-08-29] MEDS: QUEtiapine FUMARATE 25 MG TAB PO SCH (09:00)
[2016-08-29] MEDS: PANTOPRAZOLE SODIUM 40 MG TAB PO SCH (09:00)
[2016-08-29] MEDS: FOLIC ACID 1 MG TAB PO SCH (09:00)
[2016-08-29] MEDS: CARVEDILOL 6.25 MG TAB PO SCH ×2 (09:01→17:16)
[2016-08-29] MEDS: LETROZOLE 2.5 MG TAB PO SCH (09:01)
[2016-08-29] MEDS: NYSTATIN 15 GM CR TUBE TP SCH ×2 (09:02→19:25)
[2016-08-29] MEDS: TIOTROPIUM INHALER 18 MCG/DOSE 5 DOSE/MDI IH SCH (09:02)
[2016-08-29] MEDS: POTASSIUM CL 20 MEQ TAB PO SCH (09:02)
[2016-08-29] MEDS: LEVOTHYROXINE 75 MCG TAB PO SCH (10:34)
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
[2016-08-29] MEDS: QUEtiapine FUMARATE 200 MG TAB PO SCH (19:20)
[2016-08-29] MEDS: clonazePAM 0.5 MG TAB PO SCH (21:39)
[2016-08-29] MEDS: MELATONIN 3 MG TAB PO SCH (21:40)
[2016-08-30] MEDS: QUEtiapine FUMARATE 50 MG TAB PO PRN (03:19)
[2016-08-30] MEDS: CARISOPRODOL 350 MG TAB PO PRN ×2 (03:21→21:01)
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
[2016-08-30] MEDS: QUEtiapine FUMARATE 25 MG TAB PO SCH (09:13)
[2016-08-30] MEDS: LETROZOLE 2.5 MG TAB PO SCH (09:14)
[2016-08-30] MEDS: FOLIC ACID 1 MG TAB PO SCH (09:15)
[2016-08-30] MEDS: PANTOPRAZOLE SODIUM 40 MG TAB PO SCH (09:15)
[2016-08-30] MEDS: CARVEDILOL 6.25 MG TAB PO SCH ×2 (09:16→20:53)
[2016-08-30] MEDS: guaiFENesin 200 MG/10 ML UDCUP PO SCH ×2 (09:17→21:02)
[2016-08-30] MEDS: NICOTINE 21 MG/24 HR PATCH TD SCH (09:17)
[2016-08-30] MEDS: PHENYTOIN 50 MG CHEWABLE TAB PO SCH ×2 (09:20→21:00)
[2016-08-30] MEDS: POTASSIUM CL 20 MEQ TAB PO SCH (09:21)
[2016-08-30] MEDS: HYDROmorphONE/DILAUDID 2 MG TAB PO PRN ×2 (09:25→16:59)
[2016-08-30] MEDS: TIOTROPIUM INHALER 18 MCG/DOSE 5 DOSE/MDI IH SCH (09:28)
[2016-08-30] MEDS: NYSTATIN 15 GM CR TUBE TP SCH ×2 (09:29→21:02)
[2016-08-30] MEDS: LEVOTHYROXINE 75 MCG TAB PO SCH (09:31)
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
[2016-08-30] MEDS: ARIPiprazole 2 MG TAB PO SCH (14:11)
[2016-08-30] MEDS: clonazePAM 0.5 MG TAB PO SCH (21:01)
[2016-08-30] MEDS: DOXEPIN HCL 25 MG CAP PO SCH ×2 (21:01→21:21)
[2016-08-30] MEDS: QUEtiapine FUMARATE 200 MG TAB PO SCH (21:01)
[2016-08-30] MEDS: MELATONIN 3 MG TAB PO SCH (21:01)
[2016-08-31] MEDS: HYDROmorphONE/DILAUDID 2 MG TAB PO PRN ×4 (03:24→21:43)
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
[2016-08-31] MEDS: NICOTINE 21 MG/24 HR PATCH TD SCH (09:04)
[2016-08-31] MEDS: PHENYTOIN 50 MG CHEWABLE TAB PO SCH ×2 (09:05→19:09)
[2016-08-31] MEDS: PANTOPRAZOLE SODIUM 40 MG TAB PO SCH (09:05)
[2016-08-31] MEDS: CARVEDILOL 6.25 MG TAB PO SCH ×2 (09:06→19:08)
[2016-08-31] MEDS: FOLIC ACID 1 MG TAB PO SCH (09:07)
[2016-08-31] MEDS: ARIPiprazole 2 MG TAB PO SCH (09:07)
[2016-08-31] MEDS: LETROZOLE 2.5 MG TAB PO SCH (09:08)
[2016-08-31] MEDS: CARISOPRODOL 350 MG TAB PO PRN ×2 (09:12→17:16)
[2016-08-31] MEDS: NYSTATIN 15 GM CR TUBE TP SCH ×2 (10:55→20:08)
[2016-08-31] MEDS: guaiFENesin 200 MG/10 ML UDCUP PO SCH ×2 (10:55→19:20)
[2016-08-31] MEDS: POTASSIUM CL 20 MEQ TAB PO SCH (10:56)
[2016-08-31] MEDS: QUEtiapine FUMARATE 25 MG TAB PO SCH (10:56)
[2016-08-31] MEDS: TIOTROPIUM INHALER 18 MCG/DOSE 5 DOSE/MDI IH SCH (11:01)
[2016-08-31] MEDS: LEVOTHYROXINE 75 MCG TAB PO SCH (11:04)
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
[2016-08-31] MEDS: clonazePAM 0.5 MG TAB PO SCH (19:08)
[2016-08-31] MEDS: MELATONIN 3 MG TAB PO SCH (19:09)
[2016-08-31] MEDS: QUEtiapine FUMARATE 200 MG TAB PO SCH (19:09)
[2016-08-31] MEDS: DOXEPIN HCL 25 MG CAP PO SCH (19:20)
[2016-09-01] MEDS: ARIPiprazole 2 MG TAB PO SCH (09:01)
[2016-09-01] MEDS: LETROZOLE 2.5 MG TAB PO SCH (09:02)
[2016-09-01] MEDS: QUEtiapine FUMARATE 25 MG TAB PO SCH (09:02)
[2016-09-01] MEDS: CARVEDILOL 6.25 MG TAB PO SCH ×2 (09:03→17:36)
[2016-09-01] MEDS: FOLIC ACID 1 MG TAB PO SCH (09:04)
[2016-09-01] MEDS: PANTOPRAZOLE SODIUM 40 MG TAB PO SCH (09:05)
[2016-09-01] MEDS: NICOTINE 21 MG/24 HR PATCH TD SCH (09:05)
[2016-09-01] MEDS: CARISOPRODOL 350 MG TAB PO PRN ×2 (09:06→16:51)
[2016-09-01] MEDS: HYDROmorphONE/DILAUDID 2 MG TAB PO PRN ×2 (09:07→16:09)
[2016-09-01] MEDS: PHENYTOIN 50 MG CHEWABLE TAB PO SCH ×2 (09:08→19:17)
[2016-09-01] MEDS: NYSTATIN 15 GM CR TUBE TP SCH ×2 (09:29→19:27)
[2016-09-01] MEDS: TIOTROPIUM INHALER 18 MCG/DOSE 5 DOSE/MDI IH SCH (09:29)
[2016-09-01] MEDS: POTASSIUM CL 20 MEQ TAB PO SCH (09:29)
[2016-09-01] MEDS: guaiFENesin 200 MG/10 ML UDCUP PO SCH ×2 (09:29→19:26)
[2016-09-01] MEDS: LEVOTHYROXINE 75 MCG TAB PO SCH ×2 (11:18→11:21)
--- NOTE | 2016-09-01 15:42 | SOAPPROG ---
SOAP Progress Note Assessment/Plan: Assessment:Patient with mood disorder with psychosis along with unspecified opioid use disorder currently taking medications. She has a history of a TBI and a diagnosis of a personality disorder. She slept only 3 hours last night. She is asking to have her hair untangled, but she did not want it shaved until she is back in the community. She wants colored pencils and more coffee. No current safety issues. Plan: Continue medications and treatment. Encourage continued pro-social behaviors. Will restrict her usage of the colored pencils this weekend. Encourage ADLs. 08/25/16 16:32 08/25/16 16:38 08/26/16 13:36 08/26/16 13:48 08/26/16 13:57 09/01/16 15:38 09/01/16 15:50 Subjective: "How are you?" "What do you think about the weather?" "I've asked for an independent review. I've dismissed Dr. Henning. He is no longer my psychiatrist. Would kent be willing to take me on? I don't like him and his ways." She goes on to complain about no=t having colored pencils. She reports Ayla said she could have the extra pencils in order to finish the picture she was coloring. She stated staff was wrong to think they were taken without permission. She wants to know what to do about her hair. She likes the suggestion that it be shaved or cut off, but she wants to wait until she returns to the community to have that done. She wants to know if she can have more coffee. Objective: Vital Signs Temp Pulse Resp BP Pulse Ox 36.7 C 84 16 119/64 99 09/01/16 09:47 09/01/16 09:47 08/31/16 16:00 09/01/16 09:47 09/01/16 09:47 female sitting on the bed with her knees up, and her arms wrapped around her knees, O2 via NC. Pleasant tone of voice. Mood- "Fine." Affect- Euthymic. Thought Process- linear and goal directed. Thought Content - No SI/ HI. No AH/VH. - Time Spent With Patient Time Spent With Patient: 15 - Pending Discharge Pending Discharge Within 24 Hours: No Pending Discharge Within 48 Hours: No ICD10 Worksheet Patient Problems: Problems Problem Status Onset Bipolar disorder Acute
[2016-09-01] MEDS: QUEtiapine FUMARATE 200 MG TAB PO SCH (19:17)
[2016-09-01] MEDS: MELATONIN 3 MG TAB PO SCH (19:17)
[2016-09-01] MEDS: clonazePAM 0.5 MG TAB PO SCH (19:17)
[2016-09-01] MEDS: DOXEPIN HCL 25 MG CAP PO SCH (19:26)
[2016-09-02] MEDS: CARISOPRODOL 350 MG TAB PO PRN ×3 (01:04→18:27)
[2016-09-02] MEDS: HYDROmorphONE/DILAUDID 2 MG TAB PO PRN ×3 (01:05→13:28)
[2016-09-02] MEDS: QUEtiapine FUMARATE 25 MG TAB PO SCH (08:48)
[2016-09-02] MEDS: CARVEDILOL 6.25 MG TAB PO SCH ×2 (08:49→18:27)
[2016-09-02] MEDS: FOLIC ACID 1 MG TAB PO SCH (08:49)
[2016-09-02] MEDS: LETROZOLE 2.5 MG TAB PO SCH (08:50)
[2016-09-02] MEDS: ARIPiprazole 2 MG TAB PO SCH (08:50)
[2016-09-02] MEDS: LEVOTHYROXINE 75 MCG TAB PO SCH (08:51)
[2016-09-02] MEDS: NICOTINE 21 MG/24 HR PATCH TD SCH (08:52)
[2016-09-02] MEDS: PHENYTOIN 50 MG CHEWABLE TAB PO SCH ×2 (08:56→19:31)
--- NOTE | 2016-09-02 12:23 | SOAPPROG ---
SOAP Progress Note Assessment/Plan: Assessment:Patient with mood disorder with psychosis along with unspecified opioid use disorder currently taking medications. She has a history of a TBI and a diagnosis of a personality disorder. She slept only 2 hours last night. S She wants colored pencils and more coffee. No current safety issues. Plan: Continue medications and treatment. Will follow-up with Dr. Henning tomorrow. Encourage continued pro-social behaviors. Will restrict her usage of the colored pencils this weekend. Encourage ADLs. 08/25/16 16:32 08/25/16 16:38 08/26/16 13:36 08/26/16 13:48 08/26/16 13:57 09/01/16 15:38 09/01/16 15:50 09/02/16 12:26 09/02/16 12:26 Subjective: "I was told I need to discuss my discharge date with you....I don't want Dr. Henning. I have my own power of deputy county attorney. I know I'm not certified." She reports she is going back to [facility]. "They're taking me back, and I want to go back." She wants the colored pencils to complete her art work. Objective: Vital Signs Temp Pulse Resp BP Pulse Ox 36.4 C 93 15 119/59 L 92 09/02/16 06:15 09/02/16 08:49 09/02/16 06:15 09/02/16 08:49 09/02/16 06:15 female sitting in a chair in front of the nurses's station with her walker in front of her. Good eye contact. Speech- RRR and tone. Mood- ""Very hopeful." Affect- Euthymic. Thought Process- goal directed.Thought Content - No SI/HI, No AH/VH + Delusional. . - Time Spent With Patient Time Spent With Patient: 20 - Pending Discharge Pending Discharge Within 24 Hours: No Pending Discharge Within 48 Hours: No ICD10 Worksheet Patient Problems: Problems Problem Status Onset Bipolar disorder Acute
[2016-09-02] MEDS: guaiFENesin 200 MG/10 ML UDCUP PO SCH ×2 (13:01→19:35)
[2016-09-02] MEDS: NYSTATIN 15 GM CR TUBE TP SCH ×2 (13:03→19:35)
[2016-09-02] MEDS: TIOTROPIUM INHALER 18 MCG/DOSE 5 DOSE/MDI IH SCH (13:04)
[2016-09-02] MEDS: PANTOPRAZOLE SODIUM 40 MG TAB PO SCH (13:04)
[2016-09-02] MEDS: POTASSIUM CL 20 MEQ TAB PO SCH (13:04)
[2016-09-02] MEDS: QUEtiapine FUMARATE 200 MG TAB PO SCH (19:33)
[2016-09-02] MEDS: MELATONIN 3 MG TAB PO SCH (19:33)
[2016-09-02] MEDS: clonazePAM 0.5 MG TAB PO SCH (19:34)
[2016-09-02] MEDS: DOXEPIN HCL 25 MG CAP PO SCH (19:43)
[2016-09-03] MEDS: HYDROmorphONE/DILAUDID 2 MG TAB PO PRN ×4 (01:17→21:05)
[2016-09-03] MEDS: CARISOPRODOL 350 MG TAB PO PRN ×2 (02:48→15:25)
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
[2016-09-03] MEDS: QUEtiapine FUMARATE 25 MG TAB PO SCH (09:13)
[2016-09-03] MEDS: LETROZOLE 2.5 MG TAB PO SCH (09:13)
[2016-09-03] MEDS: CARVEDILOL 6.25 MG TAB PO SCH ×2 (09:13→21:06)
[2016-09-03] MEDS: ARIPiprazole 2 MG TAB PO SCH (09:15)
[2016-09-03] MEDS: FOLIC ACID 1 MG TAB PO SCH (09:15)
[2016-09-03] MEDS: PHENYTOIN 50 MG CHEWABLE TAB PO SCH ×2 (09:15→21:06)
[2016-09-03] MEDS: NICOTINE 21 MG/24 HR PATCH TD SCH (09:20)
[2016-09-03] MEDS: guaiFENesin 200 MG/10 ML UDCUP PO SCH ×2 (09:20→21:07)
[2016-09-03] MEDS: TIOTROPIUM INHALER 18 MCG/DOSE 5 DOSE/MDI IH SCH (09:21)
[2016-09-03] MEDS: NYSTATIN 15 GM CR TUBE TP SCH ×2 (09:21→21:07)
[2016-09-03] MEDS: PANTOPRAZOLE SODIUM 40 MG TAB PO SCH (09:21)
[2016-09-03] MEDS: POTASSIUM CL 20 MEQ TAB PO SCH (09:21)
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
[2016-09-03] MEDS: LEVOTHYROXINE 75 MCG TAB PO SCH (11:13)
[2016-09-03] MEDS: MELATONIN 3 MG TAB PO SCH (21:05)
[2016-09-03] MEDS: clonazePAM 0.5 MG TAB PO SCH (21:05)
[2016-09-03] MEDS: QUEtiapine FUMARATE 200 MG TAB PO SCH ×2 (21:05→22:43)
[2016-09-03] MEDS: DOXEPIN HCL 25 MG CAP PO SCH (21:07)
[2016-09-04] MEDS: CARISOPRODOL 350 MG TAB PO PRN ×3 (00:37→17:33)
[2016-09-04] MEDS: HYDROmorphONE/DILAUDID 2 MG TAB PO PRN ×4 (00:37→19:50)
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
[2016-09-04] MEDS: LEVOTHYROXINE 75 MCG TAB PO SCH (10:00)
[2016-09-04] MEDS: NICOTINE 21 MG/24 HR PATCH TD SCH (10:00)
[2016-09-04] MEDS: QUEtiapine FUMARATE 25 MG TAB PO SCH (10:04)
[2016-09-04] MEDS: LETROZOLE 2.5 MG TAB PO SCH (10:04)
[2016-09-04] MEDS: PHENYTOIN 50 MG CHEWABLE TAB PO SCH ×2 (10:04→19:42)
[2016-09-04] MEDS: FOLIC ACID 1 MG TAB PO SCH (10:06)
[2016-09-04] MEDS: ARIPiprazole 2 MG TAB PO SCH (10:06)
[2016-09-04] MEDS: CARVEDILOL 6.25 MG TAB PO SCH ×3 (10:11→19:42)
[2016-09-04] MEDS: guaiFENesin 200 MG/10 ML UDCUP PO SCH ×2 (13:33→20:57)
[2016-09-04] MEDS: NYSTATIN 15 GM CR TUBE TP SCH ×2 (13:34→20:57)
[2016-09-04] MEDS: PANTOPRAZOLE SODIUM 40 MG TAB PO SCH (13:34)
[2016-09-04] MEDS: POTASSIUM CL 20 MEQ TAB PO SCH (13:35)
[2016-09-04] MEDS: TIOTROPIUM INHALER 18 MCG/DOSE 5 DOSE/MDI IH SCH (13:35)
[2016-09-04] MEDS: clonazePAM 0.5 MG TAB PO SCH (19:42)
[2016-09-04] MEDS: MELATONIN 3 MG TAB PO SCH (19:43)
[2016-09-04] MEDS: QUEtiapine FUMARATE 200 MG TAB PO SCH (20:58)
[2016-09-05] MEDS: CARISOPRODOL 350 MG TAB PO PRN ×3 (06:22→20:13)
[2016-09-05] MEDS: HYDROmorphONE/DILAUDID 2 MG TAB PO PRN ×3 (06:22→20:14)
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
[2016-09-05] MEDS: NICOTINE 21 MG/24 HR PATCH TD SCH (09:21)
[2016-09-05] MEDS: guaiFENesin 200 MG/10 ML UDCUP PO SCH ×2 (09:21→20:24)
[2016-09-05] MEDS: PANTOPRAZOLE SODIUM 40 MG TAB PO SCH (09:22)
[2016-09-05] MEDS: PHENYTOIN 50 MG CHEWABLE TAB PO SCH ×2 (09:22→20:13)
[2016-09-05] MEDS: ARIPiprazole 2 MG TAB PO SCH (09:22)
[2016-09-05] MEDS: LEVOTHYROXINE 75 MCG TAB PO SCH (09:23)
[2016-09-05] MEDS: CARVEDILOL 6.25 MG TAB PO SCH ×2 (09:23→17:50)
[2016-09-05] MEDS: FOLIC ACID 1 MG TAB PO SCH (09:23)
[2016-09-05] MEDS: QUEtiapine FUMARATE 25 MG TAB PO SCH (09:23)
[2016-09-05] MEDS: LETROZOLE 2.5 MG TAB PO SCH (09:23)
[2016-09-05] MEDS: NYSTATIN 15 GM CR TUBE TP SCH ×2 (09:25→20:24)
[2016-09-05] MEDS: POTASSIUM CL 20 MEQ TAB PO SCH (09:26)
[2016-09-05] MEDS: TIOTROPIUM INHALER 18 MCG/DOSE 5 DOSE/MDI IH SCH (09:32)
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
[2016-09-05] MEDS: QUEtiapine FUMARATE 200 MG TAB PO SCH ×2 (20:13→20:23)
[2016-09-05] MEDS: MELATONIN 3 MG TAB PO SCH (20:14)
[2016-09-05] MEDS: clonazePAM 0.5 MG TAB PO SCH (20:14)
[2016-09-06] MEDS: HYDROmorphONE/DILAUDID 2 MG TAB PO PRN ×5 (01:45→23:02)
[2016-09-06] MEDS: CARISOPRODOL 350 MG TAB PO PRN ×2 (04:16→13:18)
[2016-09-06] MEDS: CARVEDILOL 6.25 MG TAB PO SCH ×2 (08:52→17:20)
[2016-09-06] MEDS: ARIPiprazole 2 MG TAB PO SCH (08:53)
[2016-09-06] MEDS: LETROZOLE 2.5 MG TAB PO SCH (08:54)
[2016-09-06] MEDS: FOLIC ACID 1 MG TAB PO SCH (08:57)
[2016-09-06] MEDS: QUEtiapine FUMARATE 25 MG TAB PO SCH (08:57)
[2016-09-06] MEDS: PHENYTOIN 50 MG CHEWABLE TAB PO SCH ×2 (08:58→19:43)
[2016-09-06] MEDS: LEVOTHYROXINE 75 MCG TAB PO SCH (08:58)
[2016-09-06] MEDS: NICOTINE 21 MG/24 HR PATCH TD SCH (08:59)
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
[2016-09-06] MEDS: guaiFENesin 200 MG/10 ML UDCUP PO SCH ×2 (15:21→19:50)
[2016-09-06] MEDS: PANTOPRAZOLE SODIUM 40 MG TAB PO SCH (15:22)
[2016-09-06] MEDS: NYSTATIN 15 GM CR TUBE TP SCH ×2 (15:22→19:51)
[2016-09-06] MEDS: TIOTROPIUM INHALER 18 MCG/DOSE 5 DOSE/MDI IH SCH (15:22)
[2016-09-06] MEDS: POTASSIUM CL 20 MEQ TAB PO SCH (15:22)
[2016-09-06] MEDS ORDERED: ERGOCALCIFEROL 50,000 I.UNIT CAP PO SCH (17:30)
[2016-09-06] MEDS: MELATONIN 3 MG TAB PO SCH (19:43)
[2016-09-06] MEDS: clonazePAM 0.5 MG TAB PO SCH (19:43)
[2016-09-06] MEDS: QUEtiapine FUMARATE 200 MG TAB PO SCH (19:51)
[2016-09-07] MEDS: HYDROmorphONE/DILAUDID 2 MG TAB PO PRN ×4 (06:17→22:21)
[2016-09-07] MEDS: NICOTINE 21 MG/24 HR PATCH TD SCH (09:08)
[2016-09-07] MEDS: NYSTATIN 15 GM CR TUBE TP SCH ×2 (09:08→20:56)
[2016-09-07] MEDS: FOLIC ACID 1 MG TAB PO SCH (09:09)
[2016-09-07] MEDS: CARISOPRODOL 350 MG TAB PO PRN ×2 (09:09→19:13)
[2016-09-07] MEDS: QUEtiapine FUMARATE 25 MG TAB PO SCH (09:09)
[2016-09-07] MEDS: LETROZOLE 2.5 MG TAB PO SCH (09:09)
[2016-09-07] MEDS: PHENYTOIN 50 MG CHEWABLE TAB PO SCH ×2 (09:09→19:12)
[2016-09-07] MEDS: PANTOPRAZOLE SODIUM 40 MG TAB PO SCH (09:10)
[2016-09-07] MEDS: ARIPiprazole 2 MG TAB PO SCH (09:10)
[2016-09-07] MEDS: POTASSIUM CL 20 MEQ TAB PO SCH (09:10)
[2016-09-07] MEDS: CARVEDILOL 6.25 MG TAB PO SCH ×2 (09:10→17:27)
[2016-09-07] MEDS: guaiFENesin 200 MG/10 ML UDCUP PO SCH ×2 (09:10→20:56)
[2016-09-07] MEDS: LEVOTHYROXINE 75 MCG TAB PO SCH (09:15)
[2016-09-07] MEDS: TIOTROPIUM INHALER 18 MCG/DOSE 5 DOSE/MDI IH SCH (09:54)
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
[2016-09-07] MEDS: MELATONIN 3 MG TAB PO SCH (19:13)
[2016-09-07] MEDS: clonazePAM 0.5 MG TAB PO SCH (19:13)
[2016-09-07] MEDS: QUEtiapine FUMARATE 200 MG TAB PO SCH (20:56)
[2016-09-08] MEDS: HYDROmorphONE/DILAUDID 2 MG TAB PO PRN ×4 (03:03→19:25)
[2016-09-08] MEDS: QUEtiapine FUMARATE 25 MG TAB PO SCH (07:24)
[2016-09-08] MEDS: LETROZOLE 2.5 MG TAB PO SCH (07:24)
[2016-09-08] MEDS: PHENYTOIN 50 MG CHEWABLE TAB PO SCH ×2 (07:25→19:25)
[2016-09-08] MEDS: CARVEDILOL 6.25 MG TAB PO SCH ×2 (07:25→17:30)
[2016-09-08] MEDS: ARIPiprazole 2 MG TAB PO SCH (07:26)
[2016-09-08] MEDS: NICOTINE 21 MG/24 HR PATCH TD SCH (07:26)
[2016-09-08] MEDS: FOLIC ACID 1 MG TAB PO SCH (07:26)
[2016-09-08] MEDS: PANTOPRAZOLE SODIUM 40 MG TAB PO SCH (07:29)
[2016-09-08] MEDS: NYSTATIN 15 GM CR TUBE TP SCH ×2 (07:29→21:14)
[2016-09-08] MEDS: guaiFENesin 200 MG/10 ML UDCUP PO SCH ×2 (07:29→21:14)
[2016-09-08] MEDS: POTASSIUM CL 20 MEQ TAB PO SCH (07:30)
[2016-09-08] MEDS: TIOTROPIUM INHALER 18 MCG/DOSE 5 DOSE/MDI IH SCH (07:30)
[2016-09-08] MEDS: CARISOPRODOL 350 MG TAB PO PRN ×2 (07:34→19:25)
[2016-09-08] MEDS: LEVOTHYROXINE 75 MCG TAB PO SCH (09:41)
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
[2016-09-08] MEDS: clonazePAM 0.5 MG TAB PO SCH (19:24)
[2016-09-08] MEDS: MELATONIN 3 MG TAB PO SCH (19:25)
[2016-09-08] MEDS: QUEtiapine FUMARATE 200 MG TAB PO SCH (21:15)
[2016-09-09] MEDS: PHENYTOIN 50 MG CHEWABLE TAB PO SCH ×2 (07:17→19:04)
[2016-09-09] MEDS: QUEtiapine FUMARATE 25 MG TAB PO SCH (07:19)
[2016-09-09] MEDS: ARIPiprazole 2 MG TAB PO SCH (07:19)
[2016-09-09] MEDS: LETROZOLE 2.5 MG TAB PO SCH (07:19)
[2016-09-09] MEDS: FOLIC ACID 1 MG TAB PO SCH (07:19)
[2016-09-09] MEDS: NICOTINE 21 MG/24 HR PATCH TD SCH (07:20)
[2016-09-09] MEDS: TIOTROPIUM INHALER 18 MCG/DOSE 5 DOSE/MDI IH SCH (07:21)
[2016-09-09] MEDS: CARVEDILOL 6.25 MG TAB PO SCH ×2 (07:31→17:34)
[2016-09-09] MEDS: HYDROmorphONE/DILAUDID 2 MG TAB PO PRN ×4 (07:50→20:51)
[2016-09-09] MEDS: CARISOPRODOL 350 MG TAB PO PRN ×2 (07:50→15:45)
[2016-09-09] MEDS: guaiFENesin 200 MG/10 ML UDCUP PO SCH ×2 (08:46→21:52)
[2016-09-09] MEDS: PANTOPRAZOLE SODIUM 40 MG TAB PO SCH (08:46)
[2016-09-09] MEDS: NYSTATIN 15 GM CR TUBE TP SCH ×2 (08:46→21:52)
[2016-09-09] MEDS: POTASSIUM CL 20 MEQ TAB PO SCH (08:47)
[2016-09-09] MEDS: LEVOTHYROXINE 75 MCG TAB PO SCH (10:07)
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
[2016-09-09] MEDS: MELATONIN 3 MG TAB PO SCH (19:05)
[2016-09-09] MEDS: clonazePAM 0.5 MG TAB PO SCH (19:05)
[2016-09-09] MEDS: QUEtiapine FUMARATE 200 MG TAB PO SCH (21:53)
[2016-09-10] MEDS: HYDROmorphONE/DILAUDID 2 MG TAB PO PRN ×4 (07:48→20:29)
[2016-09-10] MEDS: CARISOPRODOL 350 MG TAB PO PRN ×2 (07:48→15:59)
[2016-09-10] MEDS: FOLIC ACID 1 MG TAB PO SCH (07:49)
[2016-09-10] MEDS: QUEtiapine FUMARATE 25 MG TAB PO SCH (07:49)
[2016-09-10] MEDS: LETROZOLE 2.5 MG TAB PO SCH (07:50)
[2016-09-10] MEDS: CARVEDILOL 6.25 MG TAB PO SCH ×2 (07:51→17:10)
[2016-09-10] MEDS: ARIPiprazole 2 MG TAB PO SCH (07:52)
[2016-09-10] MEDS: PHENYTOIN 50 MG CHEWABLE TAB PO SCH ×2 (07:52→19:24)
[2016-09-10] MEDS: NICOTINE 21 MG/24 HR PATCH TD SCH (07:52)
[2016-09-10] MEDS: TIOTROPIUM INHALER 18 MCG/DOSE 5 DOSE/MDI IH SCH (07:56)
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
[2016-09-10] MEDS: POTASSIUM CL 20 MEQ TAB PO SCH (08:40)
[2016-09-10] MEDS: guaiFENesin 200 MG/10 ML UDCUP PO SCH ×2 (08:40→19:25)
[2016-09-10] MEDS: PANTOPRAZOLE SODIUM 40 MG TAB PO SCH (08:40)
[2016-09-10] MEDS: NYSTATIN 15 GM CR TUBE TP SCH ×2 (08:40→19:25)
[2016-09-10] MEDS: LEVOTHYROXINE 75 MCG TAB PO SCH (08:41)
[2016-09-10] MEDS: clonazePAM 0.5 MG TAB PO SCH (19:24)
[2016-09-10] MEDS: MELATONIN 3 MG TAB PO SCH (19:24)
[2016-09-10] MEDS: QUEtiapine FUMARATE 200 MG TAB PO SCH (19:25)
[2016-09-11] MEDS: HYDROmorphONE/DILAUDID 2 MG TAB PO PRN ×3 (07:55→19:07)
[2016-09-11] MEDS: ARIPiprazole 2 MG TAB PO SCH (07:56)
[2016-09-11] MEDS: CARISOPRODOL 350 MG TAB PO PRN (07:56)
[2016-09-11] MEDS: FOLIC ACID 1 MG TAB PO SCH (07:57)
[2016-09-11] MEDS: LETROZOLE 2.5 MG TAB PO SCH (07:58)
[2016-09-11] MEDS: CARVEDILOL 6.25 MG TAB PO SCH ×2 (07:59→18:07)
[2016-09-11] MEDS: LEVOTHYROXINE 75 MCG TAB PO SCH (08:00)
[2016-09-11] MEDS: NICOTINE 21 MG/24 HR PATCH TD SCH (08:00)
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
[2016-09-11] MEDS: guaiFENesin 200 MG/10 ML UDCUP PO SCH ×2 (14:10→19:09)
[2016-09-11] MEDS: PHENYTOIN 50 MG CHEWABLE TAB PO SCH ×3 (14:11→19:16)
[2016-09-11] MEDS: POTASSIUM CL 20 MEQ TAB PO SCH (14:11)
[2016-09-11] MEDS: QUEtiapine FUMARATE 25 MG TAB PO SCH (14:11)
[2016-09-11] MEDS: PANTOPRAZOLE SODIUM 40 MG TAB PO SCH (14:11)
[2016-09-11] MEDS: NYSTATIN 15 GM CR TUBE TP SCH ×2 (14:11→19:09)
[2016-09-11] MEDS: TIOTROPIUM INHALER 18 MCG/DOSE 5 DOSE/MDI IH SCH (14:12)
[2016-09-11] MEDS: MELATONIN 3 MG TAB PO SCH (19:07)
[2016-09-11] MEDS: clonazePAM 0.5 MG TAB PO SCH (19:07)
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
[2016-09-12] MEDS: CARISOPRODOL 350 MG TAB PO PRN ×2 (07:53→15:48)
[2016-09-12] MEDS: PHENYTOIN 50 MG CHEWABLE TAB PO SCH ×2 (07:55→19:08)
[2016-09-12] MEDS: HYDROmorphONE/DILAUDID 2 MG TAB PO PRN ×4 (07:55→21:06)
[2016-09-12] MEDS: CARVEDILOL 6.25 MG TAB PO SCH ×2 (07:55→17:37)
[2016-09-12] MEDS: LETROZOLE 2.5 MG TAB PO SCH (07:56)
[2016-09-12] MEDS: QUEtiapine FUMARATE 25 MG TAB PO SCH (07:57)
[2016-09-12] MEDS: FOLIC ACID 1 MG TAB PO SCH (07:57)
[2016-09-12] MEDS: ARIPiprazole 2 MG TAB PO SCH (07:57)
[2016-09-12] MEDS: LEVOTHYROXINE 75 MCG TAB PO SCH (07:58)
[2016-09-12] MEDS: NICOTINE 21 MG/24 HR PATCH TD SCH (07:58)
[2016-09-12] MEDS ORDERED: PHENYTOIN 50 MG CHEWABLE TAB PO SCH (09:00)
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
[2016-09-12] MEDS: guaiFENesin 200 MG/10 ML UDCUP PO SCH ×2 (13:15→20:45)
[2016-09-12] MEDS: PANTOPRAZOLE SODIUM 40 MG TAB PO SCH (13:16)
[2016-09-12] MEDS: NYSTATIN 15 GM CR TUBE TP SCH ×2 (13:16→20:45)
[2016-09-12] MEDS: POTASSIUM CL 20 MEQ TAB PO SCH (13:17)
[2016-09-12] MEDS: TIOTROPIUM INHALER 18 MCG/DOSE 5 DOSE/MDI IH SCH (13:18)
[2016-09-12] MEDS: clonazePAM 0.5 MG TAB PO SCH (19:08)
[2016-09-12] MEDS: MELATONIN 3 MG TAB PO SCH (19:08)
[2016-09-13] MEDS: PHENYTOIN 50 MG CHEWABLE TAB PO SCH ×3 (05:58→19:02)
[2016-09-13] MEDS: HYDROmorphONE/DILAUDID 2 MG TAB PO PRN ×2 (07:31→16:47)
[2016-09-13] MEDS: CARISOPRODOL 350 MG TAB PO PRN ×2 (07:31→16:48)
[2016-09-13] MEDS: QUEtiapine FUMARATE 25 MG TAB PO SCH (07:33)
[2016-09-13] MEDS: LETROZOLE 2.5 MG TAB PO SCH (07:33)
[2016-09-13] MEDS: FOLIC ACID 1 MG TAB PO SCH (07:33)
[2016-09-13] MEDS: ARIPiprazole 2 MG TAB PO SCH (07:34)
[2016-09-13] MEDS: NICOTINE 21 MG/24 HR PATCH TD SCH (07:34)
[2016-09-13] MEDS: TIOTROPIUM INHALER 18 MCG/DOSE 5 DOSE/MDI IH SCH (07:34)
[2016-09-13] MEDS: CARVEDILOL 6.25 MG TAB PO SCH ×2 (07:38→17:17)
[2016-09-13] MEDS: PANTOPRAZOLE SODIUM 40 MG TAB PO SCH (07:48)
[2016-09-13] MEDS: NYSTATIN 15 GM CR TUBE TP SCH ×2 (07:48→19:54)
[2016-09-13] MEDS: guaiFENesin 200 MG/10 ML UDCUP PO SCH ×2 (07:48→19:54)
[2016-09-13] MEDS: POTASSIUM CL 20 MEQ TAB PO SCH (07:48)
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
[2016-09-13] MEDS: LEVOTHYROXINE 75 MCG TAB PO SCH (10:18)
[2016-09-13] MEDS: clonazePAM 0.5 MG TAB PO SCH (19:00)
[2016-09-13] MEDS: MELATONIN 3 MG TAB PO SCH (19:00)
[2016-09-14] MEDS: TIOTROPIUM INHALER 18 MCG/DOSE 5 DOSE/MDI IH SCH (07:31)
[2016-09-14] MEDS: HYDROmorphONE/DILAUDID 2 MG TAB PO PRN ×3 (07:32→19:26)
[2016-09-14] MEDS: QUEtiapine FUMARATE 25 MG TAB PO SCH (07:32)
[2016-09-14] MEDS: CARVEDILOL 6.25 MG TAB PO SCH ×2 (07:32→18:30)
[2016-09-14] MEDS: NICOTINE 21 MG/24 HR PATCH TD SCH (07:32)
[2016-09-14] MEDS: LETROZOLE 2.5 MG TAB PO SCH (07:32)
[2016-09-14] MEDS: FOLIC ACID 1 MG TAB PO SCH (07:32)
[2016-09-14] MEDS: PHENYTOIN 50 MG CHEWABLE TAB PO SCH ×2 (07:33→19:23)
[2016-09-14] MEDS: CARISOPRODOL 350 MG TAB PO PRN ×2 (07:34→16:12)
[2016-09-14] MEDS: ARIPiprazole 2 MG TAB PO SCH (07:43)
[2016-09-14] MEDS: PANTOPRAZOLE SODIUM 40 MG TAB PO SCH (07:48)
[2016-09-14] MEDS: NYSTATIN 15 GM CR TUBE TP SCH ×2 (07:48→19:23)
[2016-09-14] MEDS: guaiFENesin 200 MG/10 ML UDCUP PO SCH ×2 (07:48→19:22)
[2016-09-14] MEDS: POTASSIUM CL 20 MEQ TAB PO SCH (07:49)
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
[2016-09-14] MEDS: LEVOTHYROXINE 75 MCG TAB PO SCH (10:24)
[2016-09-14] MEDS: clonazePAM 0.5 MG TAB PO SCH (19:22)
[2016-09-14] MEDS: MELATONIN 3 MG TAB PO SCH (19:22)
[2016-09-15] MEDS: HYDROmorphONE/DILAUDID 2 MG TAB PO PRN ×3 (06:57→18:58)
[2016-09-15] MEDS: CARISOPRODOL 350 MG TAB PO PRN ×2 (07:46→16:43)
[2016-09-15] MEDS: LETROZOLE 2.5 MG TAB PO SCH (08:50)
[2016-09-15] MEDS: PHENYTOIN 50 MG CHEWABLE TAB PO SCH ×2 (08:51→18:50)
[2016-09-15] MEDS: QUEtiapine FUMARATE 25 MG TAB PO SCH (08:52)
[2016-09-15] MEDS: LEVOTHYROXINE 75 MCG TAB PO SCH (08:53)
[2016-09-15] MEDS: CARVEDILOL 6.25 MG TAB PO SCH ×2 (08:54→15:53)
[2016-09-15] MEDS: ARIPiprazole 2 MG TAB PO SCH (08:55)
[2016-09-15] MEDS: FOLIC ACID 1 MG TAB PO SCH (08:55)
[2016-09-15] MEDS: NICOTINE 21 MG/24 HR PATCH TD SCH (08:56)
[2016-09-15] MEDS: TIOTROPIUM INHALER 18 MCG/DOSE 5 DOSE/MDI IH SCH (08:58)
[2016-09-15] MEDS: PANTOPRAZOLE SODIUM 40 MG TAB PO SCH (11:25)
[2016-09-15] MEDS: guaiFENesin 200 MG/10 ML UDCUP PO SCH ×2 (11:25→20:43)
[2016-09-15] MEDS: NYSTATIN 15 GM CR TUBE TP SCH ×2 (11:25→20:42)
[2016-09-15] MEDS: POTASSIUM CL 20 MEQ TAB PO SCH (11:26)
--- NOTE | 2016-09-15 15:47 | SOAPPROG ---
SOAP Progress Note Assessment/Plan: Assessment: Plan: 09/15/16 15:46 Doing well. Will likely d/c to SNF soon. CCM. Subjective: Pt seen, discussed with staff, chart reviewed. She is pleasant and interactive with me. Looking forward to going to SNF. Believes Dr. Henning will see her there in the future. Offers no c/o's except pain Requests more Dilaudid. Behaviorally stable. Objective: Vital Signs Temp Pulse Resp BP Pulse Ox 36.4 C 80 12 116/62 97 09/13/16 07:51 09/15/16 08:54 09/13/16 07:51 09/15/16 08:54 09/13/16 07:51 MSE: Calm, coop. Affect is slightly blunted, stable, approp. Mood is "pretty good." TP generally linear. TC reveals no overt psychosis. - Time Spent With Patient Time Spent With Patient: 15" - Pending Discharge Pending Discharge Within 24 Hours: No ICD10 Worksheet Patient Problems: Problems Problem Status Onset Bipolar disorder Acute
[2016-09-15] MEDS: MELATONIN 3 MG TAB PO SCH (18:49)
[2016-09-15] MEDS: clonazePAM 0.5 MG TAB PO SCH (18:49)
[2016-09-15] MEDS: QUEtiapine FUMARATE 50 MG TAB PO PRN ×2 (19:15→19:23)
[2016-09-16] MEDS: CARISOPRODOL 350 MG TAB PO PRN ×2 (06:34→14:41)
[2016-09-16] MEDS: HYDROmorphONE/DILAUDID 2 MG TAB PO PRN ×3 (06:34→20:04)
[2016-09-16] MEDS: QUEtiapine FUMARATE 25 MG TAB PO SCH (09:30)
[2016-09-16] MEDS: CARVEDILOL 6.25 MG TAB PO SCH ×2 (09:31→19:40)
[2016-09-16] MEDS: FOLIC ACID 1 MG TAB PO SCH (09:31)
[2016-09-16] MEDS: LETROZOLE 2.5 MG TAB PO SCH (09:33)
[2016-09-16] MEDS: LEVOTHYROXINE 75 MCG TAB PO SCH (09:33)
[2016-09-16] MEDS: PHENYTOIN 50 MG CHEWABLE TAB PO SCH ×2 (09:36→20:03)
[2016-09-16] MEDS: TIOTROPIUM INHALER 18 MCG/DOSE 5 DOSE/MDI IH SCH (09:37)
[2016-09-16] MEDS: guaiFENesin 200 MG/10 ML UDCUP PO SCH ×2 (09:39→20:12)
[2016-09-16] MEDS: NICOTINE 21 MG/24 HR PATCH TD SCH (09:39)
[2016-09-16] MEDS: ARIPiprazole 2 MG TAB PO SCH (09:39)
[2016-09-16] MEDS: POTASSIUM CL 20 MEQ TAB PO SCH (09:39)
[2016-09-16] MEDS: NYSTATIN 15 GM CR TUBE TP SCH ×2 (09:40→20:07)
[2016-09-16] MEDS: PANTOPRAZOLE SODIUM 40 MG TAB PO SCH (09:40)
--- NOTE | 2016-09-16 19:26 | SOAPPROG ---
SOAP Progress Note Assessment/Plan: Assessment: Plan: 09/15/16 15:46 Doing well. Will likely d/c to SNF soon. [facility]. 09/16/16 19:25 Remains stable. Likely d/c soon to SNF. [facility]. Subjective: Pt seen, discussed with staff. Reports feeling "just fine." Has numerous requests re: pain meds, colored pencils, etc. O/w calm and cooperative. Spends majority of time in room mainly due to O2. Objective: Vital Signs Temp Pulse Resp BP Pulse Ox 36.6 C 80 14 141/63 H 98 09/16/16 08:24 09/16/16 08:24 09/16/16 08:24 09/16/16 08:24 09/16/16 08:24 MSE: Calm, coop.; pleasantly interactive. Affect is euthymic, stable, approp. Mood is "fine." TP linear with some perseverations. TC reveals continued irrational thoughts, but no overt psychosis. Denies SI/HI/. - Time Spent With Patient Time Spent With Patient: 15" - Pending Discharge Pending Discharge Within 24 Hours: No Pending Discharge Within 48 Hours: No ICD10 Worksheet Patient Problems: Problems Problem Status Onset Bipolar disorder Acute
[2016-09-16] MEDS: MELATONIN 3 MG TAB PO SCH (20:05)
[2016-09-16] MEDS: clonazePAM 0.5 MG TAB PO SCH (20:05)
[2016-09-17] MEDS: HYDROmorphONE/DILAUDID 2 MG TAB PO PRN ×3 (06:32→19:10)
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
[2016-09-17] MEDS: CARISOPRODOL 350 MG TAB PO PRN ×2 (06:57→16:36)
[2016-09-17] MEDS: FOLIC ACID 1 MG TAB PO SCH (08:57)
[2016-09-17] MEDS: LETROZOLE 2.5 MG TAB PO SCH (08:57)
[2016-09-17] MEDS: LEVOTHYROXINE 75 MCG TAB PO SCH (08:57)
[2016-09-17] MEDS: CARVEDILOL 6.25 MG TAB PO SCH ×2 (08:58→19:09)
[2016-09-17] MEDS: ARIPiprazole 2 MG TAB PO SCH (08:58)
[2016-09-17] MEDS: QUEtiapine FUMARATE 25 MG TAB PO SCH (08:59)
[2016-09-17] MEDS: NICOTINE 21 MG/24 HR PATCH TD SCH (09:00)
[2016-09-17] MEDS: PHENYTOIN 50 MG CHEWABLE TAB PO SCH ×2 (09:01→19:09)
[2016-09-17] MEDS: TIOTROPIUM INHALER 18 MCG/DOSE 5 DOSE/MDI IH SCH (09:02)
[2016-09-17] MEDS: PANTOPRAZOLE SODIUM 40 MG TAB PO SCH (09:07)
[2016-09-17] MEDS: POTASSIUM CL 20 MEQ TAB PO SCH (09:07)
[2016-09-17] MEDS: guaiFENesin 200 MG/10 ML UDCUP PO SCH ×2 (09:07→19:30)
[2016-09-17] MEDS: NYSTATIN 15 GM CR TUBE TP SCH ×2 (09:07→19:31)
[2016-09-17] MEDS: MELATONIN 3 MG TAB PO SCH (19:09)
[2016-09-17] MEDS: clonazePAM 0.5 MG TAB PO SCH (19:10)
[2016-09-18] MEDS: HYDROmorphONE/DILAUDID 2 MG TAB PO PRN ×4 (07:12→20:49)
[2016-09-18] MEDS: CARISOPRODOL 350 MG TAB PO PRN ×2 (07:12→15:17)
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
[2016-09-18] MEDS: PHENYTOIN 50 MG CHEWABLE TAB PO SCH ×2 (07:49→19:06)
[2016-09-18] MEDS: QUEtiapine FUMARATE 25 MG TAB PO SCH (07:50)
[2016-09-18] MEDS: FOLIC ACID 1 MG TAB PO SCH (07:51)
[2016-09-18] MEDS: LETROZOLE 2.5 MG TAB PO SCH (07:51)
[2016-09-18] MEDS: CARVEDILOL 6.25 MG TAB PO SCH ×2 (07:51→17:25)
[2016-09-18] MEDS: ARIPiprazole 2 MG TAB PO SCH (07:52)
[2016-09-18] MEDS: NICOTINE 21 MG/24 HR PATCH TD SCH (07:52)
[2016-09-18] MEDS: PANTOPRAZOLE SODIUM 40 MG TAB PO SCH (07:52)
[2016-09-18] MEDS: POTASSIUM CL 20 MEQ TAB PO SCH (07:52)
[2016-09-18] MEDS: NYSTATIN 15 GM CR TUBE TP SCH ×2 (08:39→20:52)
[2016-09-18] MEDS: TIOTROPIUM INHALER 18 MCG/DOSE 5 DOSE/MDI IH SCH (08:44)
[2016-09-18] MEDS: LEVOTHYROXINE 75 MCG TAB PO SCH (08:44)
[2016-09-18] MEDS: guaiFENesin 200 MG/10 ML UDCUP PO SCH ×2 (08:52→20:52)
[2016-09-18] MEDS: MELATONIN 3 MG TAB PO SCH (19:07)
[2016-09-18] MEDS: clonazePAM 0.5 MG TAB PO SCH (19:07)
[2016-09-19] MEDS: PANTOPRAZOLE SODIUM 40 MG TAB PO SCH ×2 (07:38→07:49)
[2016-09-19] MEDS: POTASSIUM CL 20 MEQ TAB PO SCH ×2 (07:39→07:49)
[2016-09-19] MEDS: PHENYTOIN 50 MG CHEWABLE TAB PO SCH ×2 (07:44→19:11)
[2016-09-19] MEDS: NICOTINE 21 MG/24 HR PATCH TD SCH (07:44)
[2016-09-19] MEDS: FOLIC ACID 1 MG TAB PO SCH (07:46)
[2016-09-19] MEDS: HYDROmorphONE/DILAUDID 2 MG TAB PO PRN ×3 (07:46→19:12)
[2016-09-19] MEDS: QUEtiapine FUMARATE 25 MG TAB PO SCH (07:46)
[2016-09-19] MEDS: LETROZOLE 2.5 MG TAB PO SCH (07:47)
[2016-09-19] MEDS: CARVEDILOL 6.25 MG TAB PO SCH ×2 (07:48→17:58)
[2016-09-19] MEDS: ARIPiprazole 2 MG TAB PO SCH (07:48)
[2016-09-19] MEDS: CARISOPRODOL 350 MG TAB PO PRN ×2 (07:58→19:11)
[2016-09-19] MEDS: TIOTROPIUM INHALER 18 MCG/DOSE 5 DOSE/MDI IH SCH (07:58)
[2016-09-19] MEDS: NYSTATIN 15 GM CR TUBE TP SCH ×2 (08:58→19:18)
[2016-09-19] MEDS: guaiFENesin 200 MG/10 ML UDCUP PO SCH ×2 (08:58→19:18)
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
[2016-09-19] MEDS: LEVOTHYROXINE 75 MCG TAB PO SCH (12:35)
[2016-09-19] MEDS: MELATONIN 3 MG TAB PO SCH (19:11)
[2016-09-19] MEDS: clonazePAM 0.5 MG TAB PO SCH (19:11)
[2016-09-20] MEDS: HYDROmorphONE/DILAUDID 2 MG TAB PO PRN ×3 (07:08→19:11)
[2016-09-20] MEDS: CARISOPRODOL 350 MG TAB PO PRN ×2 (07:09→15:24)
[2016-09-20] MEDS: LEVOTHYROXINE 75 MCG TAB PO SCH (09:22)
[2016-09-20] MEDS: CARVEDILOL 6.25 MG TAB PO SCH ×2 (09:23→17:14)
[2016-09-20] MEDS: FOLIC ACID 1 MG TAB PO SCH (09:23)
[2016-09-20] MEDS: LETROZOLE 2.5 MG TAB PO SCH (09:23)
[2016-09-20] MEDS: ARIPiprazole 5 MG TAB PO SCH (09:24)
[2016-09-20] MEDS: PHENYTOIN 50 MG CHEWABLE TAB PO SCH ×2 (09:26→19:12)
[2016-09-20] MEDS: TIOTROPIUM INHALER 18 MCG/DOSE 5 DOSE/MDI IH SCH (09:27)
[2016-09-20] MEDS: NICOTINE 21 MG/24 HR PATCH TD SCH (09:36)
[2016-09-20] MEDS: guaiFENesin 200 MG/10 ML UDCUP PO SCH ×2 (09:36→21:13)
[2016-09-20] MEDS: POTASSIUM CL 20 MEQ TAB PO SCH (09:37)
[2016-09-20] MEDS: NYSTATIN 15 GM CR TUBE TP SCH (09:37)
[2016-09-20] MEDS: PANTOPRAZOLE SODIUM 40 MG TAB PO SCH (09:37)
[2016-09-20] MEDS: clonazePAM 0.5 MG TAB PO SCH (19:12)
[2016-09-20] MEDS: MELATONIN 3 MG TAB PO SCH (19:12)
[2016-09-21] MEDS: CARISOPRODOL 350 MG TAB PO PRN ×2 (07:06→15:25)
[2016-09-21] MEDS: HYDROmorphONE/DILAUDID 2 MG TAB PO PRN ×3 (07:06→19:21)
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
[2016-09-21] MEDS: CARVEDILOL 6.25 MG TAB PO SCH ×2 (08:41→17:06)
[2016-09-21] MEDS: LEVOTHYROXINE 75 MCG TAB PO SCH (08:42)
[2016-09-21] MEDS: FOLIC ACID 1 MG TAB PO SCH (08:43)
[2016-09-21] MEDS: ARIPiprazole 5 MG TAB PO SCH (08:43)
[2016-09-21] MEDS: LETROZOLE 2.5 MG TAB PO SCH (08:44)
[2016-09-21] MEDS: PHENYTOIN 50 MG CHEWABLE TAB PO SCH ×2 (08:45→19:22)
[2016-09-21] MEDS: NICOTINE 21 MG/24 HR PATCH TD SCH (08:45)
[2016-09-21] MEDS: ALBUTEROL 60 PUFFS/8 GM MDI IH PRN (08:48)
[2016-09-21] MEDS: guaiFENesin 200 MG/10 ML UDCUP PO SCH ×2 (09:19→20:58)
[2016-09-21] MEDS: PANTOPRAZOLE SODIUM 40 MG TAB PO SCH (09:19)
[2016-09-21] MEDS: POTASSIUM CL 20 MEQ TAB PO SCH (09:20)
[2016-09-21] MEDS: TIOTROPIUM INHALER 18 MCG/DOSE 5 DOSE/MDI IH SCH (09:20)
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
[2016-09-21] MEDS: clonazePAM 0.5 MG TAB PO SCH (19:21)
[2016-09-21] MEDS: MELATONIN 3 MG TAB PO SCH (19:21)
[2016-09-22] MEDS: CARISOPRODOL 350 MG TAB PO PRN ×2 (06:33→11:55)
[2016-09-22] MEDS: HYDROmorphONE/DILAUDID 2 MG TAB PO PRN ×3 (06:34→19:06)
[2016-09-22] MEDS: NICOTINE 21 MG/24 HR PATCH TD SCH (08:58)
[2016-09-22] MEDS: CARVEDILOL 6.25 MG TAB PO SCH ×2 (08:59→17:30)
[2016-09-22] MEDS: LETROZOLE 2.5 MG TAB PO SCH (09:00)
[2016-09-22] MEDS: LEVOTHYROXINE 75 MCG TAB PO SCH (09:00)
[2016-09-22] MEDS: PHENYTOIN 50 MG CHEWABLE TAB PO SCH ×2 (09:00→19:05)
[2016-09-22] MEDS: guaiFENesin 200 MG/10 ML UDCUP PO SCH ×2 (09:01→21:15)
[2016-09-22] MEDS: FOLIC ACID 1 MG TAB PO SCH (09:01)
[2016-09-22] MEDS: ARIPiprazole 5 MG TAB PO SCH (09:01)
[2016-09-22] MEDS: PANTOPRAZOLE SODIUM 40 MG TAB PO SCH (09:02)
[2016-09-22] MEDS: POTASSIUM CL 20 MEQ TAB PO SCH (09:02)
[2016-09-22] MEDS ORDERED: BACITRACIN OINTMENT 1 PACKET TP ONE (13:00)
[2016-09-22] MEDS: TIOTROPIUM INHALER 18 MCG/DOSE 5 DOSE/MDI IH SCH (13:11)
[2016-09-22] MEDS: clonazePAM 0.5 MG TAB PO SCH (19:05)
[2016-09-22] MEDS: MELATONIN 3 MG TAB PO SCH (19:06)
[2016-09-23] MEDS: HYDROmorphONE/DILAUDID 2 MG TAB PO PRN ×3 (07:03→19:16)
[2016-09-23] MEDS: CARISOPRODOL 350 MG TAB PO PRN (07:03)
[2016-09-23] MEDS: NICOTINE 21 MG/24 HR PATCH TD SCH (08:52)
[2016-09-23] MEDS: LETROZOLE 2.5 MG TAB PO SCH (08:52)
[2016-09-23] MEDS: PHENYTOIN 50 MG CHEWABLE TAB PO SCH ×2 (08:52→19:12)
[2016-09-23] MEDS: CARVEDILOL 6.25 MG TAB PO SCH ×2 (08:53→17:22)
[2016-09-23] MEDS: LEVOTHYROXINE 75 MCG TAB PO SCH (08:53)
[2016-09-23] MEDS: FOLIC ACID 1 MG TAB PO SCH (08:54)
[2016-09-23] MEDS: ARIPiprazole 5 MG TAB PO SCH (08:54)
[2016-09-23] MEDS: guaiFENesin 200 MG/10 ML UDCUP PO SCH ×2 (09:05→21:26)
[2016-09-23] MEDS: POTASSIUM CL 20 MEQ TAB PO SCH (10:00)
[2016-09-23] MEDS: PANTOPRAZOLE SODIUM 40 MG TAB PO SCH (10:00)
[2016-09-23] MEDS: TIOTROPIUM INHALER 18 MCG/DOSE 5 DOSE/MDI IH SCH (10:01)
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
[2016-09-23] MEDS: clonazePAM 0.5 MG TAB PO SCH (19:12)
[2016-09-23] MEDS: MELATONIN 3 MG TAB PO SCH (19:12)
[2016-09-24] MEDS: CARISOPRODOL 350 MG TAB PO PRN ×3 (06:35→13:55)
[2016-09-24] MEDS: HYDROmorphONE/DILAUDID 2 MG TAB PO PRN ×3 (06:35→20:06)
[2016-09-24] MEDS: LETROZOLE 2.5 MG TAB PO SCH (08:59)
[2016-09-24] MEDS: CARVEDILOL 6.25 MG TAB PO SCH ×2 (09:00→19:10)
[2016-09-24] MEDS: ARIPiprazole 5 MG TAB PO SCH (09:00)
[2016-09-24] MEDS: LEVOTHYROXINE 75 MCG TAB PO SCH (09:00)
[2016-09-24] MEDS: FOLIC ACID 1 MG TAB PO SCH (09:01)
[2016-09-24] MEDS: PHENYTOIN 50 MG CHEWABLE TAB PO SCH ×2 (09:01→19:12)
[2016-09-24] MEDS: NICOTINE 21 MG/24 HR PATCH TD SCH (09:04)
[2016-09-24] MEDS: POTASSIUM CL 20 MEQ TAB PO SCH (10:42)
[2016-09-24] MEDS: guaiFENesin 200 MG/10 ML UDCUP PO SCH ×2 (10:42→20:57)
[2016-09-24] MEDS: PANTOPRAZOLE SODIUM 40 MG TAB PO SCH (10:42)
[2016-09-24] MEDS: TIOTROPIUM INHALER 18 MCG/DOSE 5 DOSE/MDI IH SCH (10:43)
[2016-09-24] MEDS: clonazePAM 0.5 MG TAB PO SCH (19:09)
[2016-09-24] MEDS: MELATONIN 3 MG TAB PO SCH (19:13)
[2016-09-25] MEDS: HYDROmorphONE/DILAUDID 2 MG TAB PO PRN ×4 (00:06→19:10)
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
[2016-09-25] MEDS: ALBUTEROL 60 PUFFS/8 GM MDI IH PRN (08:44)
[2016-09-25] MEDS: NICOTINE 21 MG/24 HR PATCH TD SCH (08:45)
[2016-09-25] MEDS: LETROZOLE 2.5 MG TAB PO SCH (08:46)
[2016-09-25] MEDS: PHENYTOIN 50 MG CHEWABLE TAB PO SCH ×2 (08:46→19:10)
[2016-09-25] MEDS: ARIPiprazole 5 MG TAB PO SCH (08:47)
[2016-09-25] MEDS: FOLIC ACID 1 MG TAB PO SCH (08:47)
[2016-09-25] MEDS: CARVEDILOL 6.25 MG TAB PO SCH ×2 (08:47→17:10)
[2016-09-25] MEDS: CARISOPRODOL 350 MG TAB PO PRN ×3 (08:55→19:10)
[2016-09-25] MEDS: PANTOPRAZOLE SODIUM 40 MG TAB PO SCH (09:01)
[2016-09-25] MEDS: guaiFENesin 200 MG/10 ML UDCUP PO SCH ×2 (09:01→22:00)
[2016-09-25] MEDS: TIOTROPIUM INHALER 18 MCG/DOSE 5 DOSE/MDI IH SCH (09:02)
[2016-09-25] MEDS: POTASSIUM CL 20 MEQ TAB PO SCH (09:02)
[2016-09-25] MEDS: LEVOTHYROXINE 75 MCG TAB PO SCH (10:19)
[2016-09-25] MEDS: clonazePAM 0.5 MG TAB PO SCH (19:10)
[2016-09-25] MEDS: MELATONIN 3 MG TAB PO SCH (19:10)
[2016-09-26] MEDS: CARISOPRODOL 350 MG TAB PO PRN ×2 (06:26→14:43)
[2016-09-26] MEDS: HYDROmorphONE/DILAUDID 2 MG TAB PO PRN ×3 (06:26→19:05)
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
[2016-09-26] MEDS: NICOTINE 21 MG/24 HR PATCH TD SCH (09:18)
[2016-09-26] MEDS: ALBUTEROL 60 PUFFS/8 GM MDI IH PRN (09:21)
[2016-09-26] MEDS: LETROZOLE 2.5 MG TAB PO SCH (09:22)
[2016-09-26] MEDS: ARIPiprazole 5 MG TAB PO SCH (09:22)
[2016-09-26] MEDS: CARVEDILOL 6.25 MG TAB PO SCH ×2 (09:22→17:21)
[2016-09-26] MEDS: PHENYTOIN 50 MG CHEWABLE TAB PO SCH ×2 (09:22→19:06)
[2016-09-26] MEDS: FOLIC ACID 1 MG TAB PO SCH (09:23)
[2016-09-26] MEDS: guaiFENesin 200 MG/10 ML UDCUP PO SCH ×2 (09:55→21:30)
[2016-09-26] MEDS: POTASSIUM CL 20 MEQ TAB PO SCH (09:56)
[2016-09-26] MEDS: PANTOPRAZOLE SODIUM 40 MG TAB PO SCH (09:56)
[2016-09-26] MEDS: TIOTROPIUM INHALER 18 MCG/DOSE 5 DOSE/MDI IH SCH (09:56)
[2016-09-26] MEDS: LEVOTHYROXINE 75 MCG TAB PO SCH (10:36)
[2016-09-26] MEDS: MELATONIN 3 MG TAB PO SCH (19:05)
[2016-09-26] MEDS: clonazePAM 0.5 MG TAB PO SCH (19:06)
[2016-09-27 06:28] VITALS: O2SAT 90
[2016-09-27] MEDS: HYDROmorphONE/DILAUDID 2 MG TAB PO PRN ×3 (06:33→19:21)
[2016-09-27] MEDS: CARISOPRODOL 350 MG TAB PO PRN ×2 (06:33→14:20)
[2016-09-27] MEDS: NICOTINE 21 MG/24 HR PATCH TD SCH (09:27)
[2016-09-27] MEDS: ALBUTEROL 60 PUFFS/8 GM MDI IH PRN (09:28)
[2016-09-27] MEDS: LETROZOLE 2.5 MG TAB PO SCH (09:28)
[2016-09-27] MEDS: CARVEDILOL 6.25 MG TAB PO SCH ×2 (09:29→17:24)
[2016-09-27] MEDS: LEVOTHYROXINE 75 MCG TAB PO SCH (09:29)
[2016-09-27] MEDS: ARIPiprazole 5 MG TAB PO SCH (09:29)
[2016-09-27] MEDS: PHENYTOIN 50 MG CHEWABLE TAB PO SCH ×2 (09:29→19:20)
[2016-09-27] MEDS: FOLIC ACID 1 MG TAB PO SCH (09:30)
[2016-09-27] MEDS: PANTOPRAZOLE SODIUM 40 MG TAB PO SCH (10:08)
[2016-09-27] MEDS: guaiFENesin 200 MG/10 ML UDCUP PO SCH ×2 (10:08→21:58)
[2016-09-27] MEDS: TIOTROPIUM INHALER 18 MCG/DOSE 5 DOSE/MDI IH SCH (10:09)
[2016-09-27] MEDS: POTASSIUM CL 20 MEQ TAB PO SCH (10:09)
[2016-09-27] MEDS: clonazePAM 0.5 MG TAB PO SCH (19:20)
[2016-09-27] MEDS: MELATONIN 3 MG TAB PO SCH (19:21)
[2016-09-28] MEDS: CARISOPRODOL 350 MG TAB PO PRN ×2 (06:04→14:27)
[2016-09-28] MEDS: HYDROmorphONE/DILAUDID 2 MG TAB PO PRN ×2 (06:05→13:42)
[2016-09-28 07:04] VITALS: BP 124/59; RESP 16; TEMP 97.6
[2016-09-28] MEDS: ARIPiprazole 5 MG TAB PO SCH (08:48)
[2016-09-28] MEDS: FOLIC ACID 1 MG TAB PO SCH (08:48)
[2016-09-28] MEDS: PHENYTOIN 50 MG CHEWABLE TAB PO SCH (08:48)
[2016-09-28] MEDS: LETROZOLE 2.5 MG TAB PO SCH (08:48)
[2016-09-28 08:49] VITALS: PULSE 80
[2016-09-28] MEDS: CARVEDILOL 6.25 MG TAB PO SCH (08:49)
[2016-09-28] MEDS: NICOTINE 21 MG/24 HR PATCH TD SCH (08:50)
[2016-09-28] MEDS: guaiFENesin 200 MG/10 ML UDCUP PO SCH (10:04)
[2016-09-28] MEDS: POTASSIUM CL 20 MEQ TAB PO SCH (10:04)
[2016-09-28] MEDS: TIOTROPIUM INHALER 18 MCG/DOSE 5 DOSE/MDI IH SCH (10:04)
[2016-09-28] MEDS: PANTOPRAZOLE SODIUM 40 MG TAB PO SCH (10:04)
[2016-09-28] MEDS: LEVOTHYROXINE 75 MCG TAB PO SCH (11:29)
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
--- NOTE | 2016-09-28 14:46 | SOAPPROG ---
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 Seroquel PO 02/17/17 18:46 50 mg Q4H PRN AGITATION 09/28/16 14:45 Objective: Vital Signs Temp Pulse Resp BP Pulse Ox 36.4 C 80 16 124/59 H 90 L 09/28/16 07:03 09/28/16 08:49 09/28/16 07:03 09/28/16 08:49 09/28/16 07:03 ICD10 Worksheet Patient Problems: Problems Problem Status Onset Bipolar disorder Acute
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
== END 2016-09-28 15:00 | DRG 885 ==
LOC: EDUNIT# → BBEH 08-22 16:00
PROVIDERS: ADMIT Psychiatry & Neurology Psychiatry; ATTEND Psychiatry & Neurology Psychiatry
DX: F31.64 Bipolar disorder, current episode mixed, severe, with psychotic features (principal); F25.9 Schizoaffective disorder, unspecified; Z91.14 Patient's other noncompliance with medication regimen; J44.9 Chronic obstructive pulmonary disease, unspecified; E03.9 Hypothyroidism, unspecified; R56.9 Unspecified convulsions; F17.210 Nicotine dependence, cigarettes, uncomplicated; F10.21 Alcohol dependence, in remission; Z99.81 Dependence on supplemental oxygen; Z87.01 Personal history of pneumonia (recurrent); Z85.528 Personal history of other malignant neoplasm of kidney; Z87.820 Personal history of traumatic brain injury; Z85.3 Personal history of malignant neoplasm of breast; Z87.440 Personal history of urinary (tract) infections
CPT/HCPCS: 80305; G0480